=== PATIENT | female | born 1960 | race Caucasian/White ===

== ENCOUNTER → 2022-11-28 | Outpatient (CLI) | payer OTHER, SELFPAY ==
--- NOTE | 2022-11-28 | IMM_PTH ---
PATIENT: CHASTITY MADISON LOC: [facility] U#:[id number] AGE/SX: 62/F ROOM: RE11/28/[address]: Dr. Rm Patterson MD : 1960 BED: DIS: 11/28/2022 SPEC #: [id number] RECD: 11/29/22 12:41 STATUS: CRISTOBAL REQ #: [id number] RADHA: 11/28/22 00:[address]: Rm Patterson DEPT: IMMUNOHISTOCHEMISTRY RECD BY: Edith Marin ENTERED: 11/29/22 12:42 SP TYPE: IMMUNO OTHR DR: Dr. Maury Woo MD Tissues: Left breast, NOS Procedures: CALPONIN-1 (add) CK5-6 (add) CK8 (add) E-CAD (add) HER2 JENNIFER (add) KI-67 (add) P53 (add) TN (add) P40 (add) ER (initial) PHYSICIAN & [address] [address] SPECIMEN INFORMATION: Tissue Source: Left breast Clinical Info: Left breast mass Specimen Number: [id number] CPT code: 72636, 20534 x6, 90161 x3 METHODOLOGY: Deparaffinized sections of prefer/formalin-fixed tissue or PAP/DQ stained slides are incubated with monoclonal/polyclonal antibodies/oligonucleotide probes. Localization is made via biotin free immunoperoxidase method. Appropriate controls are performed and reacted as expected. Results on target cell population are indicated in the following table: RESULTS: ANTIBODY / CLONE RESULT E-Cad (ECH-6) positive CK8 (66pkduD65) positive Calponin-1 (SI508X) negative CK5-6 (D5 & 1684) negative P40 (BC28) negative P53 (DO-7) negative Ki-67 (30-9) positive, moderate ~40% MORPHOMETRIC ANALYSIS ER (clone 6F11) >95%, strong intensity TN (clone 16/1E2) 0 Her-2Neu (clone CB11) 1+, focal The prognostic test for HER2 is performed on formalin-fixed paraffin embedded tissue. A 3+ (positive) staining pattern is defined as intense, homogeneous, complete, circumferential membranous staining in >10% of contiguous tumor cells. A similar weak (2+) staining pattern is interpreted as equivocal. BRIAN follow-up testing is recommended for all equivocal cases. Positivity/negativity for ER/TN is reported if > or < 1% of the tumor cells are immuno- reactive, respectively. The ASCO/CAP criteria is used for scoring. Reference: Journal of Clinical Oncology, 2013; 31:0574-4808 & 2010; 16:5233-8056. Duration of fixation: 11.5 Hrs; Sample Adequate: Yes. These assays have not been validated on decalcified tissues. Results should be interpreted with caution given the likelihood of false negativity on decalcified specimens. These tests were developed and their performance characteristics determined by [facility]. They may not have been cleared or approved by the U.S. Food and Drug Administration. The FDA has determined that such clearance or approval is not necessary. The above immunohistochemical/dualISH markers are ordered and reviewed by the Pathologist. INTERPRETATION: Left breast, core biopsy: Invasive ductal carcinoma. Positive for estrogen receptors (favorable prognostic indicator). Negative for progesterone receptors (unfavorable prognostic indicator). Negative for overexpression of CMV5ixa. SJ:kunal 12/02/2022
--- NOTE | 2022-11-28 07:00 | BRBX_PTH ---
PATIENT: CHASTITY MADISON [facility] U#:[id number] AGE/SX: 62/F ROOM: RE11/28/[address]: Dr. Rm Patterson MD : 1960 BED: DIS: 11/28/2022 SPEC #: [id number] RECD: 11/28/22 07:35 STATUS: CRISTOBAL REWilfred #: [id number] RADHA: 11/28/22 07:[address]: Rm Patterson DEPT: SURGICAL PATHOLOGY RECD BY: Daisy Martins ENTERED: 11/28/22 10:02 SP TYPE: BREAST BX OTHR DR: Dr. Maury Woo MD Tissues: Left breast, NOS Procedures: Surgery Specimen Level IV HEADER OPERATION: Left breast mass biopsy PRE-OP DIAGNOSIS: Left breast mass TISSUE SUBMITTED: Left breast tissue MICROSCOPIC DIAGNOSIS Left breast tissue, core biopsy: Invasive ductal carcinoma, nuclear grade 2 (1.1 cm in greatest length). See comment. BONNIE:kunal 11/29/2022 COMMENT Immunohistochemistry ([id number]) supports the above diagnosis. The tumor also shows focal necrosis. ER/LA/Uje2kgz studies are being performed on sections of tumor and the results from this study will be reported separately ([id number]). MICROSCOPIC DESCRIPTION Slides are reviewed. GROSS DESCRIPTION Received in fixative is one container labeled with the patient's name and designated left breast tissue. The specimen consists of multiple elongated fragments of light banegas soft tissue that in aggregate measure 1.7 x 0.5 x 0.1 cm. The specimen is totally submitted in one cassette. / AM:kunal 11/28/2022 TC:0 CPT: 40898 ADDENDUM ADDENDUM ADDENDUM ADDENDUM ADDENDUM ADDENDUM 12/17/2022 08:50 ADDENDUM 12/19/2022 09:47 ADDENDUM 03/09/2025 16:16 ADDENDUM 12/17/2022 08:50 ADDENDUM 12/17/2022 08:50 ADDENDUM 12/17/2022 08:50 ADDENDUM 12/17/2022 08:50 PD-L1 (KEYBonaverdeUDA) IMMUNOHISTOCHEMICAL ANALYSIS FROM [facility] RESULTS: Tumor proportion score: <1% / Negative Please see complete report in e-chart or EMR [facility] ADVANCED SOLID TUMOR NGS REPORT FROM [facility] RESULT SUMMARY: Abnormal Immunotherapy Biomarkers: Tumor Mutation [place]: Low (3.1 Mutations / MB) Microsatellite Instability: MSI Negative (0.8%) PERTINENT NEGATIVE RESULTS: The following genes are NEGATIVE for clinically relevant mutations. Mutational hotspots and surrounding exonic regions were interrogated for DNA level point mutations and indels (fusions not assayed). AKT1, APC, ARID1A, SERINA, BRAF, BRCA1, BRCA2, CDH1, CDKN2A, CTNNB1, EGFR, EPCAM, ERBB2, ERBB4, FBXW7, FGFR1, FGFR2, FGFR3, GNA11, GNAQ, GNAS, HRAS, IDH1, IDH2, KDR, KIT, KRAS, MEN1, MET, MLH1, MSH2, MSH6, NOTCH1, NRAS, PDGFRA, PMS2, POLE, PTEN, PTPN11, RB1, RET, SMAD4, SMO, STK11, TERT, TSC1, TSC2, VHL Please see complete report in e-chart or EMR This addendum is added to incorporate an outside pathology consultation report. The case was examined at [facility] by Dr. Guerra (#[id number]) and the following diagnosis was rendered. HER2 IMMUNOHISTOCHEMISTRY ANALYSIS HER2 IHC SCORE: 0 SCORING METHOD: BREAST STAINING PATTERN: No membrane staining is observed or, faint partial staining of the membrane in 10% or less of the tumor cells. Please see complete above mentioned consultation report in EMR
== END | disposition home or self-care (01) ==
PROVIDERS: PCP Family Medicine; Referring Provider Surgery; Visit Provider Surgery
DX: C50.912 Malignant neoplasm of unspecified site of left female breast (principal)
CPT/HCPCS: 88305; 88341; 88342

== ENCOUNTER → 2022-12-06 | Outpatient (CLI) | payer OTHER, SELFPAY ==
--- NOTE | 2022-12-06 | FLU_PTH ---
PATIENT: CHASTITY MADISON LOC: U#:[id number] AGE/SX: 62/F ROOM: RE12/06/[address]: Dr. Gian Cassidy MD : 1960 BED: DIS: 12/06/2022 SPEC #: [id number] RECD: 12/06/22 11:41 STATUS: CRISTOBAL REQ #: [id number] RADHA: 12/06/22 00:[address]: Gian Cassidy DEPT: CYTOLOGY RECD BY: Sohail Agarwal ENTERED: 12/06/22 11:41 SP TYPE: Fluid OTHR DR: Dr. Maury Woo MD Tissues: THORACIC FLUID Procedures: Special Stain Group II Surgery Specimen Level IV Cytospin Fluid HEADER OPERATION: Thoracentesis right chest PRE-OP DIAGNOSIS: Pleural effusion TISSUE SUBMITTED: Thoracentesis fluid for cytology DIAGNOSIS CYTOLOGY Thoracentesis fluid for cytology (cytospin and cell block): Malignant cells present derived from metastatic adenocarcinoma, consistent with breast primary (ductal carcinoma). See comment. SJ:kunal 12/10/2022 COMMENT Immunohistochemistry ([id number]) supports the above diagnosis. Please make reference to previous specimen ([id number]) left breast tissue, core biopsy with diagnosis of ?invasive ductal carcinoma.? Case has been reviewed in consultation with Dr. Churchill who concurs with the above diagnosis. IDC:AM CYTOLOGY STUDY Slides are reviewed. CYTOLOGY GROSS Received is 100 ml of yellow cloudy fluid labeled with the patient's name and and designated per the requisition as thoracentesis. Submitted for cytology preparation including cell block. / kunal 12/06/2022 TC:0 CPT: 90582, 81000
--- NOTE | 2022-12-06 | IMM_PTH ---
PATIENT: CHASTITY MADISON LOC: U#:[id number] AGE/SX: 62/F ROOM: RE12/06/[address]: Dr. Gian Cassidy MD : 1960 BED: DIS: 12/06/2022 SPEC #: [id number] RECD: 12/09/22 14:13 STATUS: CRISTOBAL REQ #: [id number] RADHA: 12/06/22 00:[address]: Gian Cassidy DEPT: IMMUNOHISTOCHEMISTRY RECD BY: Edith Marin ENTERED: 12/09/22 14:17 SP TYPE: IMMUNO OTHR DR: Dr. Maury Woo MD Tissues: THORACIC FLUID Procedures: RCC (add) Mehran Ret (add) CK20 (add) CK5-6 (add) CK7 (add) CK8 (add) E-CAD (add) HEP PAR (add) HER2 JENNIFER (add) MACRO (add) MAMM (add) PA (add) TTF1 (add) Vimentin (add) Pankeratin (add) GATA3 (add) P40 (add) ER (initial) PHYSICIAN & INSTITUTION [place] [phone] SPECIMEN INFORMATION: Tissue Source: Thoracentesis fluid Clinical Info: Pleural effusion Specimen Number: [id number] CPT code: 08794, 77004 x17 METHODOLOGY: Deparaffinized sections of prefer/formalin-fixed tissue or PAP/DQ stained slides are incubated with monoclonal/polyclonal antibodies/oligonucleotide probes. Localization is made via biotin free immunoperoxidase method. Appropriate controls are performed and reacted as expected. Results on target cell population are indicated in the following table: RESULTS: ANTIBODY / CLONE RESULT ER (6F11) positive PA (1E2) negative Her-2neu (CB11) negative (0) E-Cad (ECH-6) positive Mammaglobin (31A5) negative GATA3 (L50-823) positive AE1-3 (AE1/AE3/PCK26) positive CK7 (OV-TL12/30) positive CK8 (90rijsM82) positive CK20 (KS20.8) negative Vimentin (V9) negative Macro (HAM-56) negative TTF-1 (8G7G3/1) negative HepPar (OCh1E5) negative RCC (PN-15) negative CALRET (polyclonal) negative CK5-6 (D5 & 1684) negative P40 (BC28) negative These tests were developed and their performance characteristics determined by [facility]. They may not have been cleared or approved by the U.S. Food and Drug Administration. The FDA has determined that such clearance or approval is not necessary. The above immunohistochemical/dualISH markers are ordered and reviewed by the Pathologist. INTERPRETATION: Thoracentesis fluid (cell block): Malignant cells present derived from metastatic adenocarcinoma, consistent with breast primary (ductal carcinoma). SJ:kunal 12/10/2022
--- NOTE | 2022-12-06 07:28 | US_ITS ---
PROCEDURE: ULTRASOUND GUIDED THORACENTESIS. DATE: 12/06/2022.. INDICATION: Female, 62 years old. Right pleural effusion. PHYSICIAN: Nathan Reynaga M.D. PROCEDURE: The risks, benefits, and alternatives to the procedure were explained to the patient. The specific risks of bleeding, infection, and pneumothorax requiring chest tube insertion were discussed and accepted. Written informed consent was obtained. Ultrasonographic evaluation of the right lower pleural space was carried out. An adequate pocket was identified. The patient was placed in the sitting, upright position. The overlying skin was prepped and draped in sterile fashion. 1% lidocaine was administered subcutaneously for local anesthesia. Under ultrasound guidance, a 5 Irish thoracentesis needle/catheter system was advanced into the right posterior lower pleural fluid collection. Approximately 1500 mL of sarbjit-colored fluid was drained. The catheter was removed, and a sterile dressing was applied. A specimen was collected and sent to the laboratory for analysis, as requested by the referring clinician. The patient tolerated the procedure well. A chest x-ray was ordered. US/Thoracentesis W US IMPRESSION: Ultrasound-guided right thoracentesis. Electronically Signed: Nathan Reynaga MD at 9:12 EST ,
[2022-12-06] MEDS: Lidocaine 2% (20 ml mdv) 20 ML Vial INFILT (08:18)
--- NOTE | 2022-12-06 08:28 | RAD_ITS ---
STUDY: X-RAY CHEST REASON FOR EXAM: Female, 62 years old. Post thora TECHNIQUE: AP inspiration and expiration views. COMPARISON: None. FINDINGS: The patient is status post right thoracentesis. There is no evidence of pneumothorax. Mild residual pleural-parenchymal changes at the right lung base. RAD/Chest Insp/Exp 2 View IMPRESSION: Post right thoracentesis. Mild degree of residual pleural parenchymal changes at the right lung base. Electronically Signed: Nathan Reynaga MD at 9:45 EST ,
[2022-12-06 08:40] VITALS: BP 137/95; BP 139/91; BP 143/91; PULSE 78; PULSE 84; PULSE 87; RESP 18; TEMP 36.6; O2SAT 96
== END | disposition home or self-care (01) ==
PROVIDERS: PCP Family Medicine; Referring Provider Internal Medicine Medical Oncology; Visit Provider Internal Medicine Medical Oncology
DX: J90 Pleural effusion, not elsewhere classified (principal)
CPT/HCPCS: 32555; 71046; 88108; 88305; 88313; 88341; 88342

== ENCOUNTER → 2022-12-13 | Outpatient (CLI) | payer OTHER, SELFPAY ==
--- NOTE | 2022-12-13 12:35 | ECHOLONC_ITS ---
Reason For Study: Breast CA, Pre Chemo Procedure This was a limited 2D transthoracic echocardiogram. Myocardial strain analysis was performed in this exam to aid in the assessment of cardiac function. Exam performed in department. Left Ventricle Normal LV size. Left ventricular systolic function is normal. The estimated ejection fraction is 60 %. No regional wall motion abnormalities noted. Right Ventricle Normal RV size. Normal systolic function. Atria Normal left atrium. Normal right atrium. Mitral Valve Normal mitral valve. Tricuspid Valve Normal tricuspid valve. Aortic Valve Normal aortic valve. Trisinus/trileaflet aortic valve. Pulmonic Valve Normal pulmonic valve. Great Vessels Normal aortic root. The pulmonary artery is normal size. Normal inferior vena cava. Pericardium/Pleural No pericardial effusion. MMode/2D Measurements & Calculations LVIDd: 4.8 cm IVSd: 0.84 cm Ao root diam: 3.5 cm LVIDs: 2.9 cm LVPWd: 0.90 cm FS: 39.9 % LVAd ap4: 24.1 cm2 SV(MOD-sp4): 39.0 ml SV(sp4-el): 40.3 ml LVLd ap4: 7.4 cm EDV(MOD-sp4): 66.0 ml EDV(sp4-el): 67.1 ml LVAs ap4: 13.4 cm2 LVLs ap4: 5.7 cm ESV(MOD-sp4): 27.0 ml ESV(sp4-el): 26.8 ml EF(MOD-sp4): 59.0 % EF(sp4-el): 60.0 % Doppler Measurements & Calculations Ao V2 max: 136.9 cm/sec TR max darlyn: 222.5 cm/sec Ao max P.5 mmHg TR max P.8 mmHg Ao V2 mean: 109.6 cm/sec Ao mean P.0 mmHg Ao V2 VTI: 27.5 cm ECHO/ONC Echo, Limited Study Interpretation Summary Normal LV size. Left ventricular systolic function is normal. The estimated ejection fraction is 60 %. The global longitudinal strain is borderline abnormal. The global longitudinal strain = -16.4% (abnormal). Ordering Physician: Gian Cassidy Referring Physician: Freddy Woo Performed By: Lotus Antoine, MICHAEL, RVT
== END | disposition home or self-care (01) ==
PROVIDERS: PCP Family Medicine; Referring Provider Internal Medicine Medical Oncology; Visit Provider Internal Medicine Medical Oncology
DX: Z01.818 Encounter for other preprocedural examination (principal); C50.412 Malignant neoplasm of upper-outer quadrant of left female breast
CPT/HCPCS: 93308; 93356

== ENCOUNTER → 2022-12-18 | Outpatient (CLI) | payer OTHER, SELFPAY ==
--- NOTE | 2022-12-18 08:34 | BD_ITS ---
STUDY: DUAL ENERGY X-RAY ABSORPTIOMETRY / DXA REASON FOR EXAM: Female, 62 years old. SCREENING TECHNIQUE: Bone Mineral Density (BMD) measurements of lumbar spine and bilateral hips were obtained. COMPARISON: None. FINDINGS: Lumbar Spine (L1-L4): g/cm2 (1.021) / T-score (-0.2) / Z-score (1.2) Findings are suggestive of normal bone density with a low fracture risk. Left Femur Total: g/cm2 (0.826) / T-score (-1.0) / Z-score (0.0) Left Femoral Neck: g/cm2 (0.660) / T-score (-1.7) / Z-score (-0.4) Right Femur Total: g/cm2 (0.848) / T-score (-0.8) / Z-score (0.2) Right Femoral Neck: g/cm2 (0.714) / T-score (-1.2) / Z-score (0.1) BD/Dexa Bone Density Study IMPRESSION: The patient is considered osteopenic as outlined below according to World Randy Organization (WHO) criteria with a moderate fracture risk. Reference Information: The T-score is the number of standard deviations above or below the standard which is normal for young adults at their peak bone mineral density. The World Health Organization (WHO) interprets the T-scores as follows: Above -1 Normal bone density Between -1 and -2.5 Osteopenia Equal to / or below -2.5 Osteoporosis As a practical clinical guideline, osteopenia may be graded as follows: Mild -1 through -1.5 Moderate -1.6 through -2.0 Severe -2.1 through -2.4 The Z-score is the number of standard deviations above or below age-matched controls. A Z-score of less than -1.5 would be considered abnormal. References: 1. NIH Osteoporosis and Related Bone Diseases www osteo.org 2. International Society for Clinical Densitometry www iscd.org 3. National Osteoporosis Foundation www nof.org Electronically Signed: Nathan Reynaga MD at 13:51 EST ,
--- NOTE | 2022-12-18 08:49 | NM_ITS ---
CLINICAL: 62-year-old female with history of primary breast carcinoma. WHOLE BODY 99m Tc MDP RADIONUCLIDE BONE SCINTIGRAPHY COMPARISON: FDG PET/CT study dated 12/11/2022 FINDINGS: Following the intravenous administration of 26.7 mCi of 99m Tc MDP, whole body bone images reveal: 1. Increased tracer concentration is defined in the 11th thoracic vertebra, the eighth-10th ribs posteriorly on the right. 2. Enhanced uptake is noted in the acromioclavicular compartments of both shoulders, the left sternoclavicular compartment, the bilateral wrists and hands, both elbow articulations, the knees bilaterally, the lower cervical spine posteriorly on the left, the region of the fourth thoracic vertebra posteriorly on the right, the fifth lumbar vertebra posteriorly on the right. 3. The remaining skeletal structures are scintigraphically unremarkable with normal-appearing renal images and urinary bladder activity identified. Facilitated uptake is noted in the greater trochanteric aspect of the left proximal femur most consistent with periostitis and/or trochanteric bursitis. Increased radiopharmaceutical is visualized in the right anterior chest wall which may be secondary to dystrophic calcification. NM/Bone Scan Whole Body IMPRESSION: 1. The increase in radiopharmaceutical concentration noted in the right posterior ribs and 11th thoracic vertebra is most consistent with osteoblastic turnover attributed to skeletal metastatic disease. 2. Degenerative arthritis is expressed in the bilateral shoulders, the right-left wrists and hands, the elbows bilaterally, the right-left knees, the cervical, thoracic and lumbar spine. Electronically Signed: Bossman Riley, at 22:33 EST ,
== END | disposition home or self-care (01) ==
PROVIDERS: PCP Family Medicine; Referring Provider Internal Medicine Medical Oncology; Visit Provider Internal Medicine Medical Oncology
DX: Z13.820 Encounter for screening for osteoporosis (principal); C50.412 Malignant neoplasm of upper-outer quadrant of left female breast; M85.80 Other specified disorders of bone density and structure, unspecified site; M81.0 Age-related osteoporosis without current pathological fracture
CPT/HCPCS: 77080; 78306; A9503

== ENCOUNTER → 2023-01-08 | Outpatient (CLI) | payer OTHER, SELFPAY ==
--- NOTE | 2023-01-08 10:12 | MRI_ITS ---
ACR Level 3 findings have been noted. An addendum which confirms receipt of the report will follow. INDICATION: STAGING METASTATIC BREAST CA EXAMINATION: MRI - MR Brain WO/W Contrast TECHNIQUE: Multiplanar and multisequence MR images of the brain were obtained without and with gadolinium. IV Contrast Dosage and Agent: None. COMPARISON: None. FINDINGS: BRAIN PARENCHYMA: At the cortical surface of the left occipital lobe there is a focus of contrast enhancement which is triangular in shape. This measures 0.32 cm transverse 0.54 cm AP on series 5 image 70. This is also seen on series 501 image 22. This is of concern for metastatic lesion. No MRI evidence of hemorrhage. No evidence of acute infarct. No intracranial mass or mass effect. There is preservation of the june/white matter interface. Normal sella turcica, pituitary gland, infundibular stalk, optic chiasm and hypothalamus. Posterior fossa structures are unremarkable. Mild inferior right mastoid air cell disease. INTERNAL AUDITORY CANALS: The internal auditory canals are well visualized and patent. No mass identified. CSF SPACES: Appropriate for age. No hydrocephalus. Basal cisterns are patent. VASCULAR SYSTEM: Normal flow voids in the major intracranial circulation. CALVARIUM, SKULL BASE, PARANASAL SINUSES AND MASTOID AIR CELLS: Clear. No expansile changes. ORBITS: Both globes, extraocular muscles, optic nerves and retrobulbar fat appear unremarkable. MRI/Brain W/WO Contrast IMPRESSION: 0.32 cm transverse by 0.54 cm AP dimension enhancing focus june-white junction of the left occipital lobe. This is of concern for metastatic lesion. Mild inferior right mastoid air cell disease. Level 3 nonstandard communication initiated. Electronically Signed: Jonnathan Reese MD, MARTIN at 14:55 EST ,
--- NOTE | 2023-01-08 10:12 | MRI_ITS ---
STUDY: MRI THORACIC SPINE WITH AND WITHOUT CONTRAST REASON FOR EXAM: Female, 62 years old. STAGING METASTATIC BREAST CA TECHNIQUE: IV 15ml Dotarem was administered for the contrast portion of the examination. COMPARISON: Whole body bone scan to 12/06/2022. Whole body PET/CT fusion scan 12/11/2022. FINDINGS: Normal kyphosis of the thoracic spine. There is no substantial scoliosis. T1-2, T2-3, T3-4, T4-5, T5-6, T6-7, T7-8, T8-9, T9-10, T10-11, T11-12: Large area of abnormal T1 hypointensity in the right side of the T11 vertebral body enhanced with IV contrast. Smaller abnormal right T1 hypointense lesion in the right upper posterior T10 vertebral body extending to the right T10 pedicle also enhance with IV contrast. Small enhancing benign vertebral body hemangioma in the posterior superior corner of T3 vertebral body is not metastatic disease.No thoracic extruded disc fragment or spinal stenosis. Normal visualized thoracic cord. Normal conus medullaris that terminates at the T12-L1 disc space level. The soft tissue structures are unremarkable. No abnormal enhancing lesions intradurally and extradurally. The bone metastases did enhance with intravenous contrast at T10 and T11. MRI/Spine Thoracic W/WO Contrast IMPRESSION: 1. Enhancing bone metastases involving T10 and T11 vertebral bodies and the right T10 pedicle. 2. Small T3 benign vertebral body hemangioma. 3. No MRI evidence of intramural enhancing metastatic mass or extra dural enhancing metastatic mass. 4. Normal thoracic spinal cord with and without contrast. 5. No MRI evidence of thoracic extruded disc fragment or spinal stenosis. 6. Large volume malignant effusion in the right pleural space. Electronically Signed: Keegan Olguin MD at 14:01 EST ,
[2023-01-08 10:45] LABS: CREATININE FINGERSTICK < 0.9 mg/dL (0.55-1.02); EGFR FINGERSTICK > 60.0000 mL/min (>60)
== END | disposition home or self-care (01) ==
LOC: MRI 10:12
PROVIDERS: PCP Family Medicine; Referring Provider Internal Medicine Medical Oncology; Visit Provider Internal Medicine Medical Oncology
DX: C50.412 Malignant neoplasm of upper-outer quadrant of left female breast (principal); C79.51 Secondary malignant neoplasm of bone
CPT/HCPCS: 70553; 72157; A9575

== ENCOUNTER → 2023-02-28 | Outpatient (CLI) | payer OTHER, SELFPAY ==
--- NOTE | 2023-02-28 16:12 | MRI_ITS ---
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 IV Contrast Dosage and Agent: 17 mL clariscan COMPARISON: 01/08/2023 FINDINGS: BRAIN PARENCHYMA: 4 mm focus of cortical enhancement in the right superior frontal gyrus, unchanged. Unchanged focal enhancement in the posterolateral left occipital cortex. Decreased conspicuity of left occipital pole focal triangular-shaped cortical enhancement. No MRI evidence of hemorrhage. No evidence of acute infarct. No intracranial mass or mass effect. There is preservation of the june/white matter interface. Normal sella turcica, pituitary gland, infundibular stalk, optic chiasm and hypothalamus. Posterior fossa structures are unremarkable. CSF SPACES: Appropriate for age. No hydrocephalus. Basal cisterns are patent. VASCULAR SYSTEM: Normal flow voids in the major intracranial circulation. CALVARIUM, SKULL BASE, PARANASAL SINUSES AND MASTOID AIR CELLS: Clear. No expansile changes. ORBITS: Both globes, extraocular muscles, optic nerves and retrobulbar fat appear unremarkable. MRI/Brain W/WO Contrast IMPRESSION: Unchanged focal enhancement in the right superior frontal gyrus, suspicious for metastasis. Unchanged focal enhancement in the posterior lateral left occipital cortex, suspicious for metastasis. Decreased conspicuity of focal triangular enhancement in the left occipital pole. Electronically Signed: Reji Fernandez MD at 21:15 EDT ,
[2023-02-28 16:37] LABS: Absolute Lymphocyte Count 0.88 X10^3/uL (0.83-4.51); Absolute Neutrophil Count 1.3 X10^3/uL (2.0-7.7); Basophil# 0.05 X10^3/uL; Eosinophil# 0.04 X10^3/uL; Eosinophils% 1.6 % (0-5); Hematocrit 37.9 % (37-47); Hemoglobin 12.9 g/dL (12.0-15.0); Lymphocyte # 0.88 X10^3/ul (0.83-4.51); Lymphocyte % 35.9 % (19-41); Mean Corpuscular Hgb 31.2 pg (27.0-32.0); Mean Corpuscular Volume 91.5 fL (81-99); Monocyte# 0.22 X10^3/uL; NRBC Flagged by Analyzer 0 % (0-5); Neutrophil # 1.25 X10^3/uL (2.7-7.7); Neutrophil % 51.1 % (47-70); Platelet Count 174 K/mm3 (150-450); RBC Distribution Width CV 15.5 % (11.6-14.6); RBC Distribution Width SD 51.1 fl (35.1-43.9); Red Blood Count 4.14 M/mm3 (4.2-5.4); White Blood Count 2.5 K/mm3 (4.4-11.0)
[2023-02-28 17:25] LABS: AST(SGOT) 11 U/L (15-37); Alanine Aminotransfer ALT/SGPT 18 U/L (13-56); Albumin, Serum 3.7 g/dL (3.2-5.0); Alkaline Phosphatase 46 U/L (45-117); Anion Gap 3 (5-15); BUN 15 mg/dL (7-18); BUN/Creat Ratio 23.5 RATIO (10-20); Calcium,Total 9.2 mg/dL (8.5-10.1); Chloride 106 mmol/L (98-107); Creatinine, Serum 0.64 mg/dL (0.55-1.02); EST Glomerular Filtration Rate 101 mL/min (>60); Est Glom Filt Rate - Afr Amer 122 mL/min (>60); Globulin 3.6 g/dL (2.2-4.2); Glucose 103 mg/dL (74-106); LDH 159 U/L (84-246); Potassium 3.3 mmol/L (3.5-5.1); Protein, Total 7.3 g/dL (6.4-8.2); Sodium Level 139 mmol/L (136-145)
[2023-03-02 12:16] LABS: CA 15-3 68.3 U/mL (0.0-25.0); CA 27.29 90.6 U/mL (0.0-38.6); Carcinoembryonic Antigen 1.9 ng/mL (0.0-4.7)
== END | disposition home or self-care (01) ==
LOC: MRI 15:37
PROVIDERS: PCP Family Medicine; Referring Provider Internal Medicine Medical Oncology; Visit Provider Internal Medicine Medical Oncology
DX: C50.412 Malignant neoplasm of upper-outer quadrant of left female breast (principal); C79.31 Secondary malignant neoplasm of brain; C78.00 Secondary malignant neoplasm of unspecified lung; C79.51 Secondary malignant neoplasm of bone
CPT/HCPCS: 36415; 70553; 80053; 82378; 83615; 85025; 86300; 86304; A9575

== ENCOUNTER → 2023-03-31 | Outpatient (CLI) | payer OTHER, SELFPAY ==
--- NOTE | 2023-03-31 07:24 | CT_ITS ---
EXAM: CT CHEST, ABDOMEN AND PELVIS WITH INTRAVENOUS CONTRAST CLINICAL INDICATION: MONITOR METASTATIC BREAST CA-IV ONLY TECHNIQUE: Helically acquired images were obtained of the chest, abdomen and pelvis with intravenous contrast. This CT exam was performed using one or more of the following dose reduction techniques: automated exposure control, adjustment of the mA and/or kV according to patient size, and/or use of iterative reconstruction technique. CONTRAST: IV 100mL Isovue-300 COMPARISON: PET CT scan 12/11/2022 FINDINGS: CHEST: LUNGS AND PLEURAL SPACES: Persistent moderate-sized right pleural effusion. Parietal pleural thickening along the posterior portion of the right hemithorax again seen which may represent pleural-based metastasis. No significant change in the bilateral pulmonary nodules. No pneumothorax. HEART: Normal. Heart size is normal. No pericardial effusion. MEDIASTINUM: Normal. No mediastinal or hilar adenopathy. Esophagus is unremarkable. No hiatal hernia. THYROID: Normal. No thyroid nodules or calcification. ABDOMEN: LIVER: Normal. Homogeneous. No focal mass. PANCREAS: Normal. No focal cystic or solid mass. SPLEEN: Normal. Normal size without focal cystic or solid mass. ADRENALS: Normal. No nodules. KIDNEYS AND URETERS: Normal. Normal renal size and position. No hydronephrosis. STOMACH AND BOWEL: Normal. No bowel obstruction or ileus. No focal inflammatory change. PELVIS: APPENDIX: Appendix is visualized and normal in appearance. BLADDER: Normal. REPRODUCTIVE: Unremarkable as visualized. No mass. CHEST, ABDOMEN and PELVIS: INTRAPERITONEAL SPACE: Normal. No ascites or other fluid collection. No free air. BONES/JOINTS: Previously noted radiolucent defect involving the right side of the T11 vertebral body is now sclerotic in appearance. Mild anterior listhesis of L4 on L5 likely related to associated facet arthropathy and disc space narrowing. SOFT TISSUES: Persistent 1.9 cm left breast nodule with associated nipple retraction. No discrete abdominal or pelvic wall hernia. VASCULATURE: Normal. Aorta is non-dilated. No aortic dissection. No obvious central pulmonary embolism although this study was not performed with the pulmonary embolism protocol. LYMPH NODES: Normal. No enlarged lymph nodes. CT/CT Chest, Abd, Pel w/Contrast IMPRESSION: 1. Persistent moderate size right pleural effusion associated with posterior parietal pleural thickening. 2. Stable bilateral pulmonary nodules. 3. Sclerotic transformation of the T11 vertebral body metastasis. 4. Persistent 19 mm left breast nodule with associated retraction of the left nipple. Electronically Signed: Cl Willis MD at 8:38 EDT ,
[2023-03-31 08:08] LABS: Absolute Neutrophil Count 1.2 X10^3/uL (2.0-7.7); Basophil# 0.05 X10^3/uL; Basophil% 1.9 % (0-1); Eosinophil# 0.07 X10^3/uL; Eosinophils% 2.6 % (0-5); Hematocrit 38.4 % (37-47); Hemoglobin 12.8 g/dL (12.0-15.0); Lymphocyte % 37.6 % (19-41); Mean Corp Hgb Conc 33.3 g/dL (32-36); Mean Corpuscular Hgb 31.7 pg (27.0-32.0); Mean Platelet Vol. 9.4 fl (6.2-12.0); Monocyte# 0.34 X10^3/uL; Monocyte% 12.8 % (0-10); NRBC Flagged by Analyzer 0 % (0-5); Neutrophil # 1.19 X10^3/uL (2.7-7.7); Neutrophil % 44.7 % (47-70); Platelet Count 164 K/mm3 (150-450); RBC Distribution Width CV 15.1 % (11.6-14.6); RBC Distribution Width SD 52.6 fl (35.1-43.9); Red Blood Count 4.04 M/mm3 (4.2-5.4); White Blood Count 2.7 K/mm3 (4.4-11.0)
[2023-03-31 08:30] LABS: ALB/GLOB Ratio 0.9 RATIO (0.9-2.4); AST(SGOT) 14 U/L (15-37); Alanine Aminotransfer ALT/SGPT 16 U/L (13-56); Albumin, Serum 3.6 g/dL (3.2-5.0); Alkaline Phosphatase 45 U/L (45-117); Anion Gap 7 (5-15); BUN 22 mg/dL (7-18); BUN/Creat Ratio 32.8 RATIO (10-20); Calcium,Total 8.9 mg/dL (8.5-10.1); Chloride 103 mmol/L (98-107); Creatinine, Serum 0.67 mg/dL (0.55-1.02); EST Glomerular Filtration Rate 95 mL/min (>60); Est Glom Filt Rate - Afr Amer 115 mL/min (>60); Glucose 107 mg/dL (74-106); LDH 140 U/L (84-246); Protein, Total 7.6 g/dL (6.4-8.2); Sodium Level 139 mmol/L (136-145)
[2023-04-01 06:09] LABS: CA 15-3 80.4 U/mL (0.0-25.0); CA 27.29 92.3 U/mL (0.0-38.6); Cancer Antigen 125 43.8 U/mL (0.0-38.1)
== END | disposition home or self-care (01) ==
LOC: CT 07:03
PROVIDERS: PCP Family Medicine; Referring Provider Internal Medicine Medical Oncology; Visit Provider Internal Medicine Medical Oncology
DX: C50.411 Malignant neoplasm of upper-outer quadrant of right female breast (principal); C78.01 Secondary malignant neoplasm of right lung; C79.51 Secondary malignant neoplasm of bone
CPT/HCPCS: 36415; 71260; 74177; 80053; 83615; 85025; 86300; 86304; Q9967

== ENCOUNTER → 2023-05-26 | Outpatient (CLI) | payer OTHER, SELFPAY ==
--- NOTE | 2023-05-26 10:29 | MRI_ITS ---
EXAM: MR HEAD WITHOUT AND WITH INTRAVENOUS CONTRAST CLINICAL INDICATION: Follow-up brain metastases. TECHNIQUE: Multiplanar and multisequence MR images of the brain were obtained without and with intravenous contrast. CONTRAST: 17 mL of IV Clariscan. COMPARISON: MRI brain with and without contrast 02/28/2023. FINDINGS: BRAIN AND EXTRA-AXIAL SPACES: The enhancing brain metastatic mass in the right superior frontal gyrus has resolved. The tiny suspicious enhancing metastatic mass in the left lateral occipitotemporal gyrus has resolved. The possible tiny enhancing metastatic mass in the surface of the right medial occipital lobe cortex (series 12, image 51) is much smaller. It measures 1 mm, previously 3 mm. Nor enhancing lesions. No intra- or extra-axial hemorrhage. No evidence of acute infarct. There is preservation of the june/white matter interface. Posterior fossa structures are unremarkable. Ventricles are appropriate for age. No hydrocephalus. Basal cisterns are patent. No focal signal abnormalities throughout the brain parenchyma in the T2 FLAIR sequence. SELLA: Unremarkable. Normal sella turcica, pituitary gland, infundibular stalk, optic chiasm and hypothalamus. AUDITORY SYSTEM: Unremarkable. The internal auditory canals are patent. BONES/JOINTS: Unremarkable. No discrete lytic or blastic abnormalities. SINUSES: Unremarkable as visualized. Clear. MASTOID AIR CELLS: Unremarkable as visualized. Clear. ORBITS: Unremarkable as visualized. Both globes, extraocular muscles, optic nerves and retrobulbar fat appear unremarkable. VASCULATURE: Unremarkable as visualized. Normal flow voids in the major intracranial circulation. MRI/Brain W/WO Contrast IMPRESSION: 1. Limited study due to motion. 2. Interval resolution of the enhancing metastatic mass in the right superior frontal gyrus. 3. Interval resolution of the tiny suspicious enhancing metastatic mass in the left lateral occipitotemporal gyrus. 4. Interval decrease in suspicious metastatic mass in the medial right occipital lobe (series 12, image 51). This measures 1 mm, previously 3 mm. Electronically Signed: Keegan Olguin MD at 15:07 EDT ,
== END | disposition home or self-care (01) ==
LOC: MRI 10:03
PROVIDERS: PCP Family Medicine; Referring Provider Internal Medicine Medical Oncology; Visit Provider Internal Medicine Medical Oncology
DX: C50.919 Malignant neoplasm of unspecified site of unspecified female breast (principal); C78.00 Secondary malignant neoplasm of unspecified lung; C79.31 Secondary malignant neoplasm of brain; C79.51 Secondary malignant neoplasm of bone
CPT/HCPCS: 70553; A9575

== ENCOUNTER → 2023-07-22 | Outpatient (CLI) | payer OTHER, SELFPAY ==
--- NOTE | 2023-07-22 14:48 | CT_ITS ---
STUDY: CT CHEST, ABDOMEN T PELVIS WITH CONTRAST REASON FOR EXAM: Female, 63 years old. Breast cancer; assess response to treatment RADIATION DOSAGE (If Supplied By Facility): CTDIvol = ( 16.33 ) mGy, DLP = ( 1688.49 ) mGycm TECHNIQUE: Transaxial imaging was performed following intravenous administration of IV 100mL Isovue-300. Multiplanar coronal and sagittal images were reformatted. Individualized dose optimization techniques were used for this CT. COMPARISON: Comparison is made with prior study dated March 31, 2023. FINDINGS: CHEST Stable 1.9 cm left breast nodule with the retraction. Small right pleural effusion with basilar atelectasis. This has improved as compared to prior study. Interval decrease in size of a small nodule in the posterior aspect of the right upper lobe. It presently measures 6.1 mm. This is seen on axial image #26. Stable 4.8 mm spiculated nodule in the midportion of the right upper lobe as seen on axial image #31. Stable 3.4 mm noncalcified nodule in the peripheral lateral aspect of the right upper lobe as seen on axial image #53. Stable focal nodular thickening of the anterior aspect of the right minor fissure. The previously seen atelectasis in the right middle lobe as almost completely resolved. There is a 1.1 cm x 0.8 cm nodule in the anterior aspect of the right lower lobe as seen on axial image #90. This has decreased in size as compared to prior study. There is no demonstrated pleural abnormality. Normal heart and pericardium. Normal mediastinum. Normal hilar regions. Normal unenhanced pulmonary arteries. Normal aorta arch and descending thoracic aorta. There are multi-level degenerative changes of the thoracic spine. ABDOMEN There is decreased attenuation of the liver consistent with steatosis. Normal gallbladder and extrahepatic biliary system. Normal spleen. Normal pancreas. Normal bilateral adrenal glands. Normal right kidney. Normal left kidney. Normal visualized stomach. Normal small intestine. Normal colon. The appendix is visualized and appears normal. There is scattered atherosclerotic calcification of the abdominal aorta, without a demonstrated aneurysm. Normal inferior vena cava. Normal retroperitoneum. There is a small umbilical hernia containing fat. PELVIS Normal urinary bladder. There is no pelvic fluid. There is no pelvic lymphadenopathy or mass lesion. Normal visualized pelvic arteries. CT/CT Chest, Abd, Pel w/Contrast IMPRESSION: Essentially stable examination except for slight decrease in size of the previously seen nodular density in the anterior aspect of the right lower lobe. Electronically Signed: Nathan Reynaga MD at 15:44 EDT ,
== END | disposition home or self-care (01) ==
PROVIDERS: PCP Family Medicine; Referring Provider Nurse Practitioner Family; Visit Provider Nurse Practitioner Family
DX: C50.912 Malignant neoplasm of unspecified site of left female breast (principal); C79.51 Secondary malignant neoplasm of bone; C78.00 Secondary malignant neoplasm of unspecified lung; G89.3 Neoplasm related pain (acute) (chronic); J90 Pleural effusion, not elsewhere classified
CPT/HCPCS: 71260; 74177; Q9967

== ENCOUNTER → 2023-07-25 | Outpatient (CLI) | payer OTHER, SELFPAY ==
--- NOTE | 2023-07-25 07:34 | NM_ITS ---
CLINICAL: 63-year-old female with history of primary breast carcinoma. WHOLE BODY 99m Tc MDP RADIONUCLIDE BONE SCINTIGRAPHY COMPARISON: Previous whole body bone scintigraphy study dated 12/18/2022 FINDINGS: Following the intravenous administration of 26.7 mCi of 99m Tc MDP, whole body bone images reveal: 1. On the current examination, there is increased uptake noted in the acromioclavicular compartments of both shoulders, the bilateral wrists, the knee articulations bilaterally, the lower cervical spine posteriorly on the left, the ninth 11th thoracic vertebra posteriorly on the right, the fifth lumbar vertebra posteriorly on the right. 2. The prior defined increased uptake focally apparent in the right posterior rib and visualized thoracic spine are not apparent on the current examination. 3. The remaining skeletal structures are scintigraphically unremarkable with normal-appearing renal images and urinary bladder activity identified. NM/Bone Scan Whole Body IMPRESSION: 1. The increase in tracer uptake noted in the bilateral shoulders, right and left wrists, both knees, the lower cervical spine, the thoracic and lumbar spine is commensurate with degenerative arthritis. Plain film radiography may be of benefit in the region of the lower thoracic spine. 2. The previously defined ninth and 12th thoracic vertebra and right posterior 11th rib abnormalities are not visualized on the current examination. Overall compared to the previous whole body bone scintigraphy study dated 12/18/2022, there is current scintigraphic absence of defined viable neoplastic disease. Electronically Signed: Bossman Riley DO at 22:34 EDT ,
== END | disposition home or self-care (01) ==
LOC: NM 07:34
PROVIDERS: PCP Family Medicine; Referring Provider Nurse Practitioner Family; Visit Provider Nurse Practitioner Family
DX: C50.912 Malignant neoplasm of unspecified site of left female breast (principal); C79.51 Secondary malignant neoplasm of bone
CPT/HCPCS: 78306; A9503

== ENCOUNTER → 2023-10-10 | Outpatient (CLI) | payer OTHER, SELFPAY ==
--- NOTE | 2023-10-10 12:36 | MRI_ITS ---
HISTORY: assess disease status; metastatic breast cancer -- checking with provider on Rx for pre-med. TECHNIQUE: Multiplanar and multisequence MR images of the brain were obtained before and after the intravenous administration of 19 mL [place] scan. 648 images. COMPARISON: 05/26/2023, 02/28/2023, 01/08/2023. FINDINGS: BRAIN PARENCHYMA: 3 mm enhancing left occipital lobe lesion on image 66 of series 11, not present on 05/26/2023 but smaller compared to 01/08/2023. 2 mm nodular enhancing lesion of the left occipital cortex on image 46 of series 11, slightly increased from most recent prior but decreased compared to more remote priors. No abnormal focus of restricted diffusion. No acute intracranial hemorrhage identified. CSF SPACES: Cerebral ventricles, cortical sulci, and other extra-axial CSF spaces within normal limits in size for age. No significant midline shift or other mass effect.No extra-axial fluid collection. VASCULAR SYSTEM: Major intracranial flow voids are maintained. PARANASAL SINUSES AND MASTOID AIR CELLS: No significant air fluid levels. ORBITS: Symmetric contents. MRI/Brain W/WO Contrast IMPRESSION: 3 mm recurrent enhancing metastatic lesion in the left occipital lobe, absent on 05/26/2023 but mildly decreased compared to 02/28/2023 and 01/08/2023. 2 mm enhancing metastatic lesions in the left occipital lobe, slightly increased compared to 05/26/2023 but mildly decreased compared to 02/28/2023 and 01/08/2023. Electronically Signed: Radha Chung MD at 14:54 EST ,
[2023-10-10 13:15] LABS: CREATININE FINGERSTICK 0.9 mg/dL (0.55-1.02); EGFR FINGERSTICK > 60.0000 mL/min (>60)
== END | disposition home or self-care (01) ==
PROVIDERS: PCP Family Medicine; Referring Provider Internal Medicine Medical Oncology; Visit Provider Internal Medicine Medical Oncology
DX: C50.912 Malignant neoplasm of unspecified site of left female breast (principal); C79.31 Secondary malignant neoplasm of brain; C78.00 Secondary malignant neoplasm of unspecified lung; C79.51 Secondary malignant neoplasm of bone
CPT/HCPCS: 70553; A9575

== ENCOUNTER → 2024-03-08 | Outpatient (CLI) | payer OTHER, SELFPAY ==
--- NOTE | 2024-03-08 08:00 | CT_ITS ---
STUDY: CT CHEST, ABDOMEN T PELVIS WITH CONTRAST REASON FOR EXAM: Female, 63 years old. ASSESS TREATMENT-MET BREAST CA-IV ONLY RADIATION DOSAGE (If Supplied By Facility): CTDIvol = ( 18.32 ) mGy, DLP = ( 1715.48 ) mGycm TECHNIQUE: Transaxial imaging was performed following intravenous administration of IV 100mL Isovue-300. Multiplanar coronal and sagittal images were reformatted. Individualized dose optimization techniques were used for this CT. COMPARISON: Comparison is made with prior study dated July 22, 2023. FINDINGS: CHEST Stable 1.9 cm retroareolar breast nodule on the left side with evidence of a biopsy clip. Mild heterogeneous enlargement of the left lobe of the thyroid. Stable small benign-appearing bilateral axillary lymph nodes. Small residual right pleural effusion. Stable 6.1 mm spiculated nodule in the right lung apex. Stable 6 mm nodule in the posterior medial aspect of the right lung apex. There is a new 2.8 mm nodule in the lateral aspect of the right upper lobe as seen on axial image #35 and coronal image #159. Interval decrease in size of the previously seen nodule in the superior aspect of the right lower lobe abutting the right major fissure. It presently measures 7 mm. Stable small pleural-based nodules in the right lower lobe. Interval decrease in size of the right pleural effusion. Interval decrease in size of the right lower lobe nodule adjacent to the right major fissure as seen on axial image #83. There are calcifications of the coronary arteries. Normal mediastinum. Normal hilar regions. Normal unenhanced pulmonary arteries. Normal aorta arch and descending thoracic aorta. Sclerotic lesion in the T11 vertebrae. This is unchanged. ABDOMEN There is decreased attenuation of the liver consistent with steatosis. Normal gallbladder and extrahepatic biliary system. Normal spleen. Normal pancreas. Normal bilateral adrenal glands. Normal right kidney. Normal left kidney. Normal visualized stomach. Normal small intestine. Moderate amount of fecal material is seen in the colon. The appendix is visualized and appears normal. There is scattered atherosclerotic calcification of the abdominal aorta, without a demonstrated aneurysm. Normal inferior vena cava. Normal retroperitoneum. Normal abdominal wall. There are minimal anterior listhesis of L4 on L5 most likely secondary to the facet joint osteoarthritis. Degenerative changes of the visualized lumbar spine. Sclerotic lesion in the T11 vertebrae. PELVIS Normal urinary bladder. There is no pelvic fluid. There is no pelvic lymphadenopathy or mass lesion. Normal visualized pelvic arteries. CT/CT Chest, Abd, Pel w/Contrast IMPRESSION: Interval improvement in the right pleural effusion with the decreased size of the previously seen pulmonary nodules. Diffuse fatty infiltration of the liver. Stable sclerotic nodule in the T11 vertebrae. Electronically Signed: Nathan Reynaga MD at 14:52 EDT ,
== END | disposition home or self-care (01) ==
LOC: CT 07:59
PROVIDERS: PCP Family Medicine; Referring Provider Internal Medicine Medical Oncology; Visit Provider Internal Medicine Medical Oncology
DX: C50.412 Malignant neoplasm of upper-outer quadrant of left female breast (principal); C78.00 Secondary malignant neoplasm of unspecified lung
CPT/HCPCS: 71260; 74177; Q9967

== ENCOUNTER → 2024-04-21 | Outpatient (CLI) | payer OTHER, SELFPAY ==
--- NOTE | 2024-04-21 07:34 | NM_ITS ---
CLINICAL: 63-year-old female with history of primary breast carcinoma. WHOLE BODY 99m Tc MDP RADIONUCLIDE BONE SCINTIGRAPHY COMPARISON: Previous whole body bone scintigraphy study dated 07/25/2023 FINDINGS: Following the intravenous administration of 27.8 mCi of 99m Tc MDP, whole body bone images reveal: 1. Increased tracer concentration is demonstrated in the acromioclavicular compartments of both shoulders, the bilateral wrists and hands, the anterolateral femoral and anteromedial tibial compartments of both knees, the ankle articulations bilaterally, the lower cervical spine posteriorly on the left, first thoracic vertebra posteriorly on the left, the fourth lumbar vertebra posteriorly on the left, the first sacral segment posteriorly on the right, the bilateral forefoot. 2. The remaining skeletal structures are scintigraphically unremarkable with normal-appearing renal images and urinary bladder activity identified. NM/Bone Scan Whole Body IMPRESSION: 1. The increase in radiopharmaceutical concentration defined in the bilateral shoulders, wrists and hands, the knees and ankle articulations bilaterally, the cervical, thoracic and lumbar spine, the sacrum and bilateral forefoot is commensurate with degenerative arthritis. 2. Overall compared to the previous whole body bone scintigraphy study dated 07/25/2023, there is minimal interval change. There is no definitive scintigraphic evidence of osseous metastatic disease on the current examination. Electronically Signed: Bossman Riley DO at 11:11 EDT ,
== END | disposition home or self-care (01) ==
LOC: NM 07:34
PROVIDERS: PCP Family Medicine; Referring Provider Internal Medicine Medical Oncology; Visit Provider Internal Medicine Medical Oncology
DX: C50.112 Malignant neoplasm of central portion of left female breast (principal); C79.51 Secondary malignant neoplasm of bone; Z17.0 Estrogen receptor positive status [ER+]; M89.8X9 Other specified disorders of bone, unspecified site
CPT/HCPCS: 78306; A9503

== ENCOUNTER → 2024-09-17 | Outpatient (CLI) | payer OTHER, SELFPAY ==
--- NOTE | 2024-09-17 12:31 | MRI_ITS ---
STUDY: MRI BRAIN WITH AND WITHOUT CONTRAST REASON FOR EXAM: Female, 64 years old. brain lesion left occipital lobe; met breast ca, COMPARE TO PREVIOUS, BEST POSSIBLE PATIENT UNABLE TO HOLD STILL, REPEATED TECHNIQUE: Standardized multiplanar fat and water weighted pulse sequences were obtained. IV CLARISCAN 18ML was administered for the contrast portion of the examination. COMPARISON: October 10, 2023 FINDINGS: Normal size of the ventricles and extra-axial spaces for the patient''s age. There is a slightly heterogeneously enhancing nodule in the left parietal occipital region measuring approximately 1.03 x 1.12 x 1.3 cm with vasogenic edema consistent with known metastatic disease but has increased in size since prior exam. There is a second larger multinodular mass in the right occipital lobe measuring approximately 2.3 x 1.85 x 2.15 cm with associated vasogenic edema consistent with metastatic disease. There is effacement of the cortical sulci but no significant mass effect upon the ventricular system Normal bilateral basal ganglia. Normal thalami. There is no extra-axial fluid accumulation. Normal flow voids within the major intracranial circulation suggesting patency by spin echo criteria. Normal venous enhancement. Partial empty sella deformity of uncertain clinical significance. Normal, infundibular stalk, optic chiasm and hypothalamus. Normal tectal plate and pineal gland. Normal midbrain, vahid and medulla. Normal cerebellum. Normal basal cisterns. Normal bilateral temporal bones. Normal bilateral internal auditory canals. No demonstrated orbital abnormality, within the constraints of a routine brain study. Normal visualized paranasal sinuses. Normal calvarium and skull base. Normal visualized soft tissue structures. Normal visualized upper cervical spine. MRI/Brain W/WO Contrast IMPRESSION: Increased size of previously identified left parietal occipital metastatic focus with new lesion in the right occipital lobe Electronically Signed: Walter Can MD at 16:32 EDT ,
[2024-09-17 12:41] LABS: Absolute Lymphocyte Count 0.94 X10^3/uL (0.83-4.51); Absolute Neutrophil Count 1.4 X10^3/uL (2.0-7.7); Basophil# 0.04 X10^3/uL; Basophil% 1.5 % (0-1); Eosinophil# 0.03 X10^3/uL; Eosinophils% 1.1 % (0-5); Hemoglobin 12.5 g/dL (12.0-15.0); Lymphocyte # 0.94 X10^3/ul (0.83-4.51); Lymphocyte % 35.3 % (19-41); Mean Corp Hgb Conc 34.7 g/dL (32-36); Mean Corpuscular Hgb 33.3 pg (27.0-32.0); Mean Platelet Vol. 9.2 fl (6.2-12.0); Monocyte# 0.22 X10^3/uL; Monocyte% 8.3 % (0-10); NRBC Flagged by Analyzer 0 % (0-5); Neutrophil # 1.42 X10^3/uL (2.7-7.7); Neutrophil % 53.4 % (47-70); POSITIVE MORPHOLOGY YES; Platelet Count 161 K/mm3 (150-450); RBC Distribution Width CV 12.6 % (11.6-14.6); RBC Distribution Width SD 43.8 fl (35.1-43.9); Red Blood Count 3.75 M/mm3 (4.2-5.4); White Blood Count 2.7 K/mm3 (4.4-11.0)
[2024-09-17 12:43] LABS: Differential Indicated SCAN CRITERIA MET
[2024-09-17 13:08] LABS: Differential Comment SCANNED; Platelet Estimate ADEQUATE (ADEQ); Red Cell Morphology NORM C+C NORMAL (NORM C&C)
[2024-09-17 13:10] LABS: ALB/GLOB Ratio 1.1 RATIO (0.9-2.4); AST(SGOT) 14 U/L (15-37); Alanine Aminotransfer ALT/SGPT 23 U/L (13-56); Albumin, Serum 3.9 g/dL (3.2-5.0); Alkaline Phosphatase 56 U/L (45-117); Anion Gap 4 (5-15); BUN 19 mg/dL (7-18); BUN/Creat Ratio 25.3 RATIO (10-20); Calcium,Total 9.2 mg/dL (8.5-10.1); Chloride 105 mmol/L (98-107); Creatinine, Serum 0.75 mg/dL (0.55-1.02); EST Glomerular Filtration Rate 83 mL/min (>60); Est Glom Filt Rate - Afr Amer 101 mL/min (>60); Globulin 3.6 g/dL (2.2-4.2); Glucose 105 mg/dL (74-106); Potassium 4.1 mmol/L (3.5-5.1); Protein, Total 7.5 g/dL (6.4-8.2); Sodium Level 138 mmol/L (136-145)
[2024-09-18 08:11] LABS: CA 15-3 55.5 U/mL (0.0-25.0); CA 27.29 68.9 U/mL (0.0-38.6)
== END | disposition home or self-care (01) ==
LOC: MRI 12:01
PROVIDERS: PCP Family Medicine; Referring Provider Nurse Practitioner Family; Visit Provider Nurse Practitioner Family
DX: C50.919 Malignant neoplasm of unspecified site of unspecified female breast (principal); C79.31 Secondary malignant neoplasm of brain; C78.00 Secondary malignant neoplasm of unspecified lung; C79.51 Secondary malignant neoplasm of bone; G93.9 Disorder of brain, unspecified
CPT/HCPCS: 36415; 70553; 80053; 85025; 86300; A9575

== ENCOUNTER → 2024-11-02 | Outpatient (CLI) | payer OTHER, SELFPAY ==
--- NOTE | 2024-11-02 06:33 | MRI_ITS ---
EXAM: MR LUMBAR SPINE WITHOUT AND WITH INTRAVENOUS CONTRAST CLINICAL INDICATION: LMD, eval for metastases TECHNIQUE: Multiplanar and multisequence MR images of the lumbar spine without and with intravenous contrast. CONTRAST: IV 19ml clariscan COMPARISON: No relevant prior studies available. FINDINGS: VERTEBRAE: See below. SPINAL CORD: Normal. Normal position and signal intensity of the conus medullaris. SOFT TISSUES: Normal. DISCS/SPINAL CANAL/NEURAL FORAMINA: L1-L2: Normal disc height and morphology. Normal spinal canal and lateral recesses. Normal neuroforamina. L2-L3: Normal disc height and morphology. Normal spinal canal and lateral recesses. Normal neuroforamina. L3-L4: Normal disc height and morphology. Normal spinal canal and lateral recesses. Normal neuroforamina. L4-L5: Grade 1 anterior listhesis of L4 on L5 likely related to underlying disc degeneration and facet arthropathy. Mild disc space narrowing. No disc protrusion. Mild narrowing of the right neural foramen related to facet arthropathy. L5-S1: Normal disc height and morphology. Normal spinal canal and lateral recesses. Normal neuroforamina. MRI/Spine Lumbar W/WO Contrast IMPRESSION: No evidence of metastatic disease. Electronically Signed: Cl Willis MD at 14:19 EST ,
--- NOTE | 2024-11-02 06:33 | MRI_ITS ---
STUDY: MRI CERVICAL SPINE WITH AND WITHOUT CONTRAST REASON FOR EXAM: Female, 64 years old. LMD, eval for metastases TECHNIQUE: Standardized fat and water weighted pulse sequences were obtained in the sagittal and axial following administration of IV 19ml clariscan. COMPARISON: None FINDINGS: Normal foramen magnum and brainstem-cervical cord junction. Normal craniovertebral junction. Normal anterior atlantoaxial articulation. Normal odontoid process. Normal cervical lordosis. Normal vertebral bodies and posterior osseous elements. C2-3: Normal endplates. Normal disc height, signal and morphology. Normal central canal and intervertebral neural foramina. C3-4: Normal endplates. Normal disc height, signal and morphology. Normal central canal and intervertebral neural foramina. C4-5: Normal endplates. Normal disc height, signal and morphology. Normal central canal and intervertebral neural foramina. C5-6: Grade 1 retrolisthesis Normal endplates. Normal disc height, signal and tiny central disc/osteophyte protrusion. Mild narrowing of central canal. Normal intervertebral neural foramina. C6-7: Normal endplates. Normal disc height, signal and morphology. Normal central canal and intervertebral neural foramina. C7-T1: Normal endplates. Normal disc height, signal and morphology. Normal central canal and intervertebral neural foramina. Normal cervical cord. Normal visualized soft tissue structures. MRI/Spine Cervical W/WO Contrast IMPRESSION: Mild narrowing of the central canal at C5-6 secondary to tiny central disc/osteophyte protrusion. No other significant abnormality. Specifically no evidence for metastatic disease. Electronically Signed: Walter Can MD at 22:42 EST Reading Location ID and State: [address] [place] [address] Tel , Service support ,
--- NOTE | 2024-11-02 06:33 | MRI_ITS ---
STUDY: MRI THORACIC SPINE WITH AND WITHOUT CONTRAST REASON FOR EXAM: Female, 64 years old. LMD eval for metastases TECHNIQUE: IV 19ml clariscan was administered for the contrast portion of the examination. COMPARISON: None. FINDINGS: Normal kyphosis of the thoracic spine. There is no substantial scoliosis. No evidence for acute fracture or subluxation. Small interosseous hemangioma in the T3 vertebral body T1-2, T2-3, T3-4, T4-5, T5-6, T6-7, T7-8, T8-9, T9-10, T10-11, T11-12: Normal endplates. There is a tiny left posterolateral disc protrusion at T7-8 mildly narrowing the spinal canal and minimally impinging upon the cord.. Normal visualized thoracic cord. Normal conus medullaris that terminates at T12-L1 The soft tissue structures are unremarkable. There is no enhancing abnormality. MRI/Spine Thoracic W/WO Contrast IMPRESSION: Tiny left posterolateral disc protrusion at T7-8 mildly impinging upon the cord. No evidence for acute fracture or metastatic disease. Incidental finding of right pleural effusion Electronically Signed: Walter Can MD at 18:59 EST ,
== END | disposition home or self-care (01) ==
PROVIDERS: PCP Family Medicine; Referring Provider Student in an Organized Health Care Education/Training Program; Visit Provider Student in an Organized Health Care Education/Training Program
DX: G96.198 Other disorders of meninges, not elsewhere classified (principal)
CPT/HCPCS: 72156; 72157; 72158; A9575

== ENCOUNTER → 2024-11-29 | Outpatient (CLI) | payer OTHER, SELFPAY ==
--- NOTE | 2024-11-29 07:35 | MRI_ITS ---
STUDY: MRI BRAIN WITH AND WITHOUT CONTRAST REASON FOR EXAM: Female, 64 years old. treated brain metastases -- compare to prior TECHNIQUE: Standardized multiplanar fat and water weighted pulse sequences were obtained. IV 18ml Clariscan was administered for the contrast portion of the examination. COMPARISON: MRI of the brain dated September 17, 2024. FINDINGS: * Redemonstration of moderate primarily subcortical white matter vasogenic edema, features of mild gyral edema, and sulcal effacement throughout the full length of the medial/parasagittal aspect of the right occipital lobe extending into the posterior superior aspect of the right parietal lobe= no significant interval change since the September 17, 2024 study * Redemonstration of dural and parenchyma based mass enhancement along the interhemispheric falx in the posterior parasagittal region of the right occipital lobe measuring 1.91 x 1.04 cm on the current study compared to the prior measurement of 2.87 x 1.60 cm, with visible improvement in debulking/decreasing in the size of the lesion, particularly in the left or right aspect of the brain parenchyma. Mild surrounding vasogenic edema is unchanged from the prior study. * Mild interval decrease in size of the intensely enhancing nodule attached to the dura and the posterior subcortical and medial and superior aspect of the left parietal lobe, from a prior measurement of 1.27 cm to the current measurement of 0.93 cm * Slight interval increase in size of the dural based subcortical nodule (3 mm) in the posterior lateral aspect of the left occipital lobe see image 49/140 series 12 on the current exam, compared to the prior study where the nodule measured 2 mm and was seen on image 10/25 series 13. * No new intra-axial or extra-axial enhancing lesions are present There is mild cerebral atrophy with widening of the extra-axial spaces and ventricular dilatation. Normal remaining white matter tracts of the supratentorial brain. There is no evidence for recent intracranial ischemia or other cause of cytotoxic edema on diffusion weighted imaging (DWI). Normal T2* images of the brain without demonstrated susceptibility artifact. There is no demonstrated hemosiderin stain. Normal bilateral basal ganglia. Normal thalami. There is no extra-axial fluid accumulation. Normal flow voids within the major intracranial circulation suggesting patency by spin echo criteria. Normal venous enhancement. Normal sella turcica, pituitary gland, infundibular stalk, optic chiasm and hypothalamus. Normal tectal plate and pineal gland. Normal midbrain, vahid and medulla. Normal cerebellum. Normal basal cisterns. Normal bilateral temporal bones. Normal bilateral internal auditory canals. No demonstrated orbital abnormality, within the constraints of a routine brain study. Normal visualized paranasal sinuses. Normal calvarium and skull base. Normal visualized soft tissue structures. Normal visualized upper cervical spine. MRI/Brain W/WO Contrast IMPRESSION: 1. 2 dominant dural and parenchymal based enhancing metastatic lesions of the left parietal lobe in the right parieto-occipital junction with surrounding vasogenic edema have decreased in size responding to treatment 2. Slight interval increase in size of the subcortical dural based enhancing metastatic lesion in the anterolateral aspect of the left occipital lobe from 2 mm up to 3.2 mm Electronically Signed: Efraín Cr MD at 15:50 EST ,
== END | disposition home or self-care (01) ==
PROVIDERS: PCP Family Medicine; Referring Provider Student in an Organized Health Care Education/Training Program; Visit Provider Student in an Organized Health Care Education/Training Program
DX: Z08 Encounter for follow-up examination after completed treatment for malignant neoplasm (principal); Z85.841 Personal history of malignant neoplasm of brain
CPT/HCPCS: 70553; A9575

== ENCOUNTER → 2025-01-10 | Outpatient (CLI) | payer OTHER, SELFPAY ==
--- NOTE | 2025-01-10 07:27 | CT_ITS ---
PROCEDURE: CT CHEST AND ABD W/ CONTRAST REASON FOR EXAM: History of left breast cancer. TECHNIQUE: Chest and abdomen CT with intravenous contrast. No oral contrast. CONTRAST: 100 cc of Isovue-300. COMPARISON: Comparison is made with prior study dated March 08, 2024. FINDINGS: CT CHEST: Hardware: None. A tissue clip marker is seen in the left breast. Lymph nodes: No mediastinal, hilar, or axillary lymphadenopathy. Heart and Vasculature: Normal heart size. No pericardial effusion. Thoracic aorta and pulmonary arteries are unremarkable. Coronary artery calcification. Lungs and Airways: There are multiple bilateral pulmonary nodules. Since prior study, the have increased both in number and size. The largest nodule is in the anterior aspect of the right lower lobe abutting the right major fissure and measures 2.1 cm. Pleura: There is a new small left pleural effusion. CT ABDOMEN: Liver: Diffuse fatty infiltration. There is a 2.4 cm x 1.4 cm faintly enhancing nodule in the peripheral lateral aspect of the right lobe of the liver as seen on axial image number 33 this was not well visualized on prior study. A metastatic deposit should be ruled out. Gallbladder: Unremarkable. Spleen: Unremarkable. Pancreas: Unremarkable. Adrenals: Unremarkable. Kidneys: Unremarkable. Bowel: Sigmoid diverticulosis. Lymph nodes: No suspicious lymph node enlargement at the upper abdomen. Vasculature: Mild diffuse atherosclerotic calcifications are noted. Peritoneum / Retroperitoneum: No ascites or free air at the upper abdomen. Bones: Degenerative changes of the spine. Stable sclerotic lesion in the T11 vertebrae. CT/CT Chest AND Abd W/ Contrast IMPRESSION: Interval increase in size and number of the bilateral pulmonary nodules. New right pleural effusion. 2.4 cm x 1.4 cm faintly enhancing nodule in the peripheral lateral aspect of th e right lobe of the liver. This is suggestive of possible metastasis. One or more dose reduction techniques were used (e.g., Automated exposure contr ol, adjustment of the mA and/or kV according to patient size, use of iterative reconstruction technique). Reading Location: [facility]
== END | disposition home or self-care (01) ==
LOC: CT 07:26
PROVIDERS: PCP Family Medicine; Referring Provider Nurse Practitioner Family; Visit Provider Nurse Practitioner Family
DX: C50.112 Malignant neoplasm of central portion of left female breast (principal); C78.00 Secondary malignant neoplasm of unspecified lung; C79.51 Secondary malignant neoplasm of bone; Z17.0 Estrogen receptor positive status [ER+]
CPT/HCPCS: 71260; 74160; Q9967; A4216

== ENCOUNTER → 2025-01-26 | Outpatient (CLI) | payer OTHER, SELFPAY ==
--- NOTE | 2025-01-26 07:15 | MRI_ITS ---
PROCEDURE: BRAIN W/WO CONTRAST REASON FOR EXAM: TREATED BRAIN METASTASES, FOLLOW UP MONITORING TECHNIQUE: Multisequence multiplanar MR images of the brain were obtained before and after the administration of 20 mL of Clariscan intravenous contrast. COMPARISON: 11/29/2024 FINDINGS: Unchanged dural/leptomeningeal enhancement along the medial right occipital lobe. Two unchanged nodular enhancing cortical lesions in the left occipital lobe posteriorly. New punctate enhancing focus along the medial left parieto-occipital lobe (post-contrast axial image 90/140) measuring 3.5 mm. No other discrete enhancing lesions. Unchanged vasogenic edema throughout the right occipital lobe. Interval improvement of the previous vasogenic edema in the posterior left occipital lobe. New focal area of edema surrounding the medial left parieto-occipital enhancing lesion. No diffusion restriction to suggest acute/subacute ischemia. No acute intracranial hemorrhage, midline shift or mass effect. Cerebral volume is age-appropriate. No hydrocephalus. Globes are intact. Paranasal sinuses are clear. Trace fluid in the mastoid air cells. MRI/Brain W/WO Contrast IMPRESSION: 1. Stable and minimally improved bilateral occipital lobe lesions as detailed a aide. 2. New focal enhancing cortical lesion in the medial left parieto-occipital lob e measuring 3.5 mm with minimal surrounding vasogenic edema. Reading Location: [facility]
== END | disposition home or self-care (01) ==
PROVIDERS: PCP Family Medicine; Referring Provider Student in an Organized Health Care Education/Training Program; Visit Provider Student in an Organized Health Care Education/Training Program
DX: G96.198 Other disorders of meninges, not elsewhere classified (principal)
CPT/HCPCS: 70553; A9575

== ENCOUNTER → 2025-02-08 | Outpatient (CLI) | payer OTHER, SELFPAY ==
--- NOTE | 2025-02-08 07:28 | US_ITS ---
EXAM: Right thoracentesis. CLINICAL HISTORY: Metastatic breast cancer. COMPARISON: Recent outside PET-CT scan was viewed on a separate PAC system. TECHNIQUE: See below. FINDINGS: Informed consent was obtained. Direct ultrasound guidance, aseptic technique, and local anesthesia were utilized. 7 Moroccan sheath needle was utilized to enter the right pleural space. The small catheter was advanced as the needle was removed. Subsequently, total of 710 cc of near translucent yellow tinged fluid was removed uneventfully. 100 cc of fluid was sent for requested laboratory analysis. The catheter was discontinued. Patient was discharged home directly following a postprocedural chest x-ray in good condition. US/Thoracentesis W US IMPRESSION: Uneventful right-sided ultrasound-guided thoracentesis as described. Reading Location: [place] [address]
[2025-02-08 08:00] VITALS: BP 130/82; PULSE 80; RESP 19; TEMP 36.1; O2SAT 99
--- NOTE | 2025-02-08 08:00 | RAD_ITS ---
EXAM: XR Chest, 1 View CLINICAL INDICATION: POST THORACENTESIS TECHNIQUE: Frontal view of the chest. COMPARISON: No relevant prior studies available. FINDINGS: LUNGS AND PLEURAL SPACES: Status post right-sided thoracentesis. Small residual right pleural effusion. No pneumothorax. HEART: Unremarkable. No cardiomegaly. MEDIASTINUM: Unremarkable. Normal mediastinal contour. BONES/JOINTS: Unremarkable. No acute fracture. RAD/Chest Insp/Exp 2 View IMPRESSION: Status post right-sided thoracentesis. Small residual right pleural effusion. No pneumothorax. Reading Location: [facility]
[2025-02-08 08:45] VITALS: BP 137/86; PULSE 75; RESP 16; O2SAT 97
[2025-02-08] MEDS: Lidocaine 2% (20 ml mdv) 20 ML Vial INFILT (08:58)
[2025-02-08 09:00] VITALS: BP 127/83; PULSE 76; RESP 16; O2SAT 99
[2025-02-08 09:11] VITALS: BP 114/76; PULSE 80; RESP 16; O2SAT 99
[2025-02-08 09:15] VITALS: BP 127/89; PULSE 84; RESP 16; O2SAT 98
--- NOTE | 2025-02-08 09:17 | FLU_PTH ---
PATIENT: CHASTITY MADISON LOC: U#:[id number] AGE/SX: 64/F ROOM: RE02/08/[address]: Dr. Gian Cassidy MD : 1960 BED: DIS: 02/08/2025 SPEC #: [id number] RECD: 02/08/25 13:51 STATUS: CRISTOBAL REQ #: [id number] RADHA: 02/08/25 09:[address]: Gian Cassidy DEPT: CYTOLOGY RECD BY: Andrew Montano ENTERED: 02/08/25 13:51 SP TYPE: Fluid OTHR DR: Dr. Nayeli Oconnell MD Tissues: A - THORACIC FLUID Procedures: Immunohistochemical Stains Special Stain Group II Surgery Specimen Level IV Cytospin Fluid IHC Stain ADDITIONAL HEADER OPERATION: Thoracentesis fluid PRE-OP DIAGNOSIS: Pleural effusion - right TISSUE SUBMITTED: A- Thoracentesis fluid for cytology DIAGNOSIS CYTOLOGY Thoracentesis fluid, right pleural effusion: * Few atypical cells - see note. * Note: IHCs performed on the fluid (cytospins) and the cellblock are positive for pancytokeratin, GATA3, and calretinin; Estrogen Receptor is negative. These findings favor reactive mesothelial cells. CYTOLOGY STUDY Slides are reviewed. These tests were developed and their performance characteristics determined by [facility]. They may not have been cleared or approved by the U.S. Food and Drug Administration. The FDA has determined that such clearance or approval is not necessary. The above immunohistochemical/dualISH markers are ordered and reviewed by the Pathologist. CYTOLOGY GROSS A. Received is 90 ml of yellow-cloudy fluid labeled with the patient's name and and designated per the requisition as Thoracentesis fluid. Submitted for cytology. Cell block and 2 pap-stained cytospins prepared. Mr 02/08/2025 CPT: 12863,19394,97127w9
[2025-02-08 09:23] VITALS: BP 126/82; PULSE 78; RESP 16; O2SAT 100
== END | disposition home or self-care (01) ==
PROVIDERS: PCP Family Medicine; Referring Provider Internal Medicine Medical Oncology; Visit Provider Internal Medicine Medical Oncology
DX: J90 Pleural effusion, not elsewhere classified (principal); C78.00 Secondary malignant neoplasm of unspecified lung; C50.412 Malignant neoplasm of upper-outer quadrant of left female breast
CPT/HCPCS: 32555; 71046; 88108; 88305; 88313

== ENCOUNTER → 2025-02-09 | Outpatient (CLI) | payer OTHER, SELFPAY ==
[2025-02-09] VITALS (19 sets, daily range): BP systolic 108–131; BP diastolic 63–91; PULSE 72–94; RESP 9–20; TEMP 36.1; O2SAT 92–99; BMI 34.7
[2025-02-09 13:17] LABS: Absolute Lymphocyte Count 0.99 X10^3/uL (0.83-4.51); Absolute Neutrophil Count 4.8 X10^3/uL (2.0-7.7); Basophil# 0.09 X10^3/uL; Basophil% 1.3 % (0-1); Eosinophil# 0.15 X10^3/uL; Eosinophils% 2.1 % (0-5); Hematocrit 40.9 % (37-47); Hemoglobin 14.5 g/dL (12.0-15.0); Lymphocyte # 0.99 X10^3/ul (0.83-4.51); Lymphocyte % 14.2 % (19-41); Mean Corp Hgb Conc 35.5 g/dL (32-36); Mean Corpuscular Hgb 33.5 pg (27.0-32.0); Mean Corpuscular Volume 94.5 fL (81-99); Monocyte# 0.86 X10^3/uL; Monocyte% 12.3 % (0-10); NRBC Flagged by Analyzer 0 % (0-5); Neutrophil # 4.84 X10^3/uL (2.7-7.7); Neutrophil % 69.4 % (47-70); Platelet Count 288 K/mm3 (150-450); Red Blood Count 4.33 M/mm3 (4.2-5.4)
[2025-02-09 13:20] LABS: Prothrombin Time (Protime)PT. 13.2 SECONDS (11.7-14.9)
[2025-02-09 13:21] LABS: Partial Thromboplast Time 26.3 Seconds (24.1-36.2)
[2025-02-09] MEDS: 0.9% Saline Lock 10 ML Syringe IV (13:38)
[2025-02-09] MEDS: Midazolam 2 MG/2 ML Syringe IV ×2 (13:46→14:10)
[2025-02-09] MEDS: fentaNYL 100 MCG/2 ML Ampul IV (13:47)
--- NOTE | 2025-02-09 13:50 | CT_ITS ---
PROCEDURE: BIOPSY/INJ OR NEEDLE PLACEMENT 02/09/2025 REASON FOR EXAM: BX OF LIVER. Breast cancer. TECHNIQUE: Targeted noncontrast CT images of the liver. One or more dose reduction techniques were used (e.g., Automated exposure control, adjustment of the mA and/or kV according to patient size, use of iterative reconstruction technique). COMPARISON: Diagnostic contrast-enhanced CT scan of January 10, 2025. PET-CT scan of February 01, 2025. FINDINGS: Informed consent was obtained. Conscious sedation and analgesia were administered. Patient's previous PET-CT scan of February 01, 2025 was reviewed along with previous contrast-enhanced diagnostic CT images of the abdomen obtained January 10, 2005 were reviewed. The 1.3 cm diameter hypodense lesion in segment VII was CT localized. 17 gauge/18 gauge coaxial automatic biopsy gun was utilized and passes were made to 3 separate areas within and about the lesion. Specimens were examined on site by the pathologist. Diagnosis is pending at this time. Entire apparatus was removed. The patient tolerated the procedure well was kept for a brief observation stay prior to discharge home. CT/Biopsy/Inj or Needle Placement IMPRESSION: Uneventful CT-guided liver biopsy as described. Reading Location: [place] [address]
[2025-02-09] MEDS: Lidocaine 2% (20 ml mdv) 20 ML Vial INFILT (14:04)
--- NOTE | 2025-02-09 14:30 | LIVB_PTH ---
PATIENT: CHASTITY MADISON LOC: [place] U#:[id number] AGE/SX: 64/F ROOM: RE02/09/[address]: Dr. Gian Cassidy MD : 1960 BED: DIS: 02/09/2025 SPEC #: [id number] RECD: 02/09/25 15:22 STATUS: CRISTOBAL REWilfred #: [id number] RADHA: 02/09/25 14:[address]: Gian Cassidy DEPT: SURGICAL PATHOLOGY RECD BY: Andrew Montano ENTERED: 02/09/25 15:22 SP TYPE: LIVER BX OT DR: Dr. Nayeli Oconnell MD Tissues: A - Liver, NOS Procedures: Trichrome (control) Special Stain Group I Surgery Specimen Level V Retic (control) Iron Stain (control) HEADER OPERATION: CT guided liver biopsy PRE-OP DIAGNOSIS: Breast cancer, liver mets TISSUE SUBMITTED: A- Liver biopsy 18 gauge x 3 cores MICROSCOPIC DIAGNOSIS A. LIVER, CT-GUIDED CORE BIOPSY: - NEGATIVE FOR MALIGNANCY. - MILD TRIADITIS, NONSPECIFIC (LYMPHOCYTES WITH OCCASIONAL PLASMA CELLS AND RARE NEUTROPHILS). - STEATOSIS 50-60%. - MINIMAL PORTAL FIBROSIS (TRICHROME STAIN). - NORMAL RETICULIN PATTERN (RETICULIN STAIN). - TRACE STAINABLE IRON (PRUSSIAN BLUE STAIN) COMMENT The specimen is evaluated at the time of biopsy by Dr. Calloway. Immediate Evaluation = Pass 1- low cellularity other cells. Pass 2- atypical cells MICROSCOPIC DESCRIPTION Slides are reviewed. All matched controls reacted appropriately. GROSS DESCRIPTION A. Received in formalin labeled, TrishChastity, evonignated, are four banegas cylindrical soft tissue cores that range from 0.3 to 1.9 cm long and average 0.1 cm in diameter. Totally submitted in one cassette. Maria Elena 02/09/2025 CPT:97845,16228, [id number]
== END | disposition home or self-care (01) ==
LOC: CT 12:44
PROVIDERS: Radiology Diagnostic Radiology; PCP Family Medicine; Referring Provider Internal Medicine Medical Oncology; Visit Provider Internal Medicine Medical Oncology
DX: Z01.818 Encounter for other preprocedural examination (principal); C78.00 Secondary malignant neoplasm of unspecified lung; C50.412 Malignant neoplasm of upper-outer quadrant of left female breast; G89.3 Neoplasm related pain (acute) (chronic); R93.89 Abnormal findings on diagnostic imaging of other specified body structures
CPT/HCPCS: 47000; 36415; 77012; 85025; 85610; 85730; 88307; 88312; 99156; 99157; A4216

== ENCOUNTER → 2025-02-17 | Outpatient (CLI) | payer OTHER, SELFPAY ==
--- NOTE | 2025-02-17 10:05 | NM_ITS ---
PROCEDURE: BONE SCAN WHOLE BODY 02/17/2025 REASON FOR EXAM: BREAST CA TECHNIQUE: Whole-body bone scan with anterior and posterior views. Imaging at 3.5 hours. RADIOPHARMACEUTICAL: 26.7 mCi Technetium-99m MDP IV COMPARISON: CORRELATION WITH EXISTING RELEVANT IMAGING STUDIES (i.e. x-ray, MRI, CT, etc.): No existing relevant imaging study available or patient did not have a previous relevant imaging study. FINDINGS: Bones: Focal increased radiopharmaceutical uptake seen at the costochondral junction at the 6th rib medially on the left side suggestive of possible costochondritis. Mild increased markings in the medial aspects of both knee joints suggestive of degenerative change. Kidneys: Normal uptake. NM/Bone Scan Whole Body IMPRESSION: Focal increased uptake in the left 6th costochondral junction most likely secon kavin to costochondritis. Reading Location: [place] [address]
== END | disposition home or self-care (01) ==
LOC: NM 10:04
PROVIDERS: PCP Family Medicine; Referring Provider Internal Medicine Medical Oncology; Visit Provider Internal Medicine Medical Oncology
DX: C50.412 Malignant neoplasm of upper-outer quadrant of left female breast (principal); R93.89 Abnormal findings on diagnostic imaging of other specified body structures
CPT/HCPCS: 78306; A9503

== ENCOUNTER → 2025-03-28 | Outpatient (CLI) | payer OTHER, SELFPAY ==
--- NOTE | 2025-03-28 06:48 | MRI_ITS ---
EXAM: BRAIN W/WO CONTRAST CLINICAL HISTORY: BRAIN METASTASES, TREATED, MONITORING COMPARISON: January 26, 2025. TECHNIQUE: Multiplanar, multisequence MR images of the brain were obtained without and with 17 cc gadolinium contrast material. FINDINGS: Enhancing lesions: There is a 0.5 cm enhancing lesion in the mid right cerebellar hemisphere, image 4/26, new. There is a 0.2 and 0.5 cm enhancing lesion in the right cerebellar hemisphere, image 6/26, new. There is a 0.4 cm enhancing extra-axial lesion at the tentorium, left of midline, image 9/26, new. There is a 0.3 cm enhancing lesion in the surface of the lower left occipital lobe, image 10/26, 0.4 cm on the prior. Central portion of the right occipital lobe shows heterogeneous abnormal enhancement measuring 2.2 x 3.7 cm, 1.8 by 3.0 cm on the prior. There is a enhancing left occipital lesion measuring 1.1 x 0.8 cm, image 13/26, 0.9 x 0.7 cm on the prior. There is a left occipital lesion measuring 1.0 x 0.7 cm, image 18/26, 0.5 cm on the prior. There is a 0.6 cm enhancing left frontal lesion, image 14, 0.6 cm left frontal lesion, image 15, new compared to the prior. T2 shine through is visible associated with the lesion in the right occipital lobe.. No cerebellar tonsillar ectopia. No sellar/suprasellar signal abnormalities. The ocular globes and intraorbital soft tissues are symmetrically unremarkable. There is fluid signal in a portion of the mastoid air cells on the right and left, similar to the prior. MRI/Brain W/WO Contrast IMPRESSION: There is fluid signal in a portion of the mastoid air cells on the right and le ft, similar to the prior. There is interval progression of cerebral metastatic disease as described above . Reading Location: [facility]
== END | disposition home or self-care (01) ==
PROVIDERS: PCP Family Medicine; Referring Provider Student in an Organized Health Care Education/Training Program; Visit Provider Student in an Organized Health Care Education/Training Program
DX: G96.198 Other disorders of meninges, not elsewhere classified (principal); C79.31 Secondary malignant neoplasm of brain
CPT/HCPCS: 70553; A9575

== ENCOUNTER 2025-04-12 10:16 | Emergency (ER) | payer OTHER, SELFPAY ==
[2025-04-12 10:19] VITALS: BP 95/74; PULSE 78; RESP 18; TEMP 36.4; O2SAT 100
[2025-04-12 10:22] VITALS: BMI 29.5
--- NOTE | 2025-04-12 10:38 | ED.RN ---
PT IS UNDER TX FOR METASTATIC BREAST CA THAT HAS METASTASES TO THE LIVER, BRAIN, LUNG. C/O INCREASED PAIN TO THE RECTUM, UNABLE TO GET COMFORTABLE OR SLEEP. S/O AND DAUGHTER AT THE BEDSIDE.
--- NOTE | 2025-04-12 10:49 | CT_ITS ---
PROCEDURE: BRAIN/HEAD W/WO CONTRAST 04/12/2025 REASON FOR EXAM: CONFUSION, METASTATIC BREAST CANCER to the brain TECHNIQUE: Head CT before and following intravenous contrast. Coronal and Sagittal reconstruction series were provided. CONTRAST: Contrast dose = not reported One or more dose reduction techniques were used (e.g., Automated exposure control, adjustment of the mA and/or kV according to patient size, use of iterative reconstruction technique). RADIATION DOSE SUMMARY: DLP: 3472.97 MGycm COMPARISON: March 28, 2025 MRI FINDINGS: There is postcontrast enhancement in the right occipital region along the falx measuring 3.0 x 1.5 cm, similar to the prior. There is enhancement in the left posterior occipital lobe measuring 1.3 x 1.0 cm, similar to the prior. There is enhancing lesion to the left of the falx in the occipital lobe measuring 0.8 x 0.8 cm, image 28/43, similar to the prior. There is low-density throughout the right posterior temporal and occipital lobe and left occipital lobe consistent with gliosis and edema with a similar distribution to the recent MRI. There is no visible acute hemorrhage. There is no midline shift or evidence of herniation. There is no visible acute bony abnormality. The visualized paranasal sinuses are clear. CT/Brain/Head W/WO Contrast IMPRESSION: There is postcontrast enhancement in the right occipital region along the falx measuring 3.0 x 1.5 cm, similar to the prior. There is enhancement in the left posterior occipital lobe measuring 1.3 x 1.0 c m, similar to the prior. There is enhancing lesion to the left of the falx in the occipital lobe measuring 0.8 x 0.8 cm, im age 28/43, similar to the prior. There is low-density throughout the right posterior temporal and occipital lobe and left occipital lobe consistent with gliosis and edema with a similar distribution to the recent MRI. There is no visible acute hemorrhage. There is no midline shift or evidence of herniation. Reading Location: [facility]
--- NOTE | 2025-04-12 10:50 | CT_ITS ---
EXAM: CT Chest, Abdomen and Pelvis With Intravenous Contrast CLINICAL INDICATION: RECTAL PAIN WITH NORMAL EXAM, MET BR CA TECHNIQUE: Axial computed tomography images of the chest, abdomen and pelvis with intravenous contrast. This CT exam was performed using one or more of the following dose reduction techniques: automated exposure control, adjustment of the mA and/or kV according to patient size, and/or use of iterative reconstruction technique. COMPARISON: CT Chest Abdomen Pelvis dated 01/10/2025 FINDINGS: ARTIFACTS: Attenuation artifacts. CHEST: LUNGS AND PLEURAL SPACES: Right pleural effusion with compressive atelectasis and numerous pulmonary nodules, stable, concerning for metastasis. No pneumothorax. HEART: Unremarkable. No cardiomegaly. No significant pericardial effusion. No significant coronary artery calcifications. THYROID: Right thyroid nodule. ABDOMEN: LIVER: Fatty liver with multiple hypodense lesions, which increased in size and number since the prior exam, concerning for worsening metastasis. GALLBLADDER AND BILE DUCTS: Unremarkable. No calcified stones. No ductal dilation. PANCREAS: Unremarkable. No ductal dilation. No mass. SPLEEN: Unremarkable. No splenomegaly. ADRENALS: Unremarkable. No mass. KIDNEYS AND URETERS: Mild right hydronephrosis without obstructing calculus. No solid mass. No stones within either kidney. No hydronephrosis. STOMACH AND BOWEL: Fecal retention in the colon consistent with constipation. No obstruction. No mucosal thickening. PELVIS: APPENDIX: No findings to suggest acute appendicitis. BLADDER: Unremarkable. No mass. REPRODUCTIVE: Unremarkable as visualized. CHEST, ABDOMEN and PELVIS: INTRAPERITONEAL SPACE: Unremarkable. No significant fluid collection. No free air. BONES/JOINTS: Multiple osteoblastic lesions of the spine, new since the prior exam, concerning for worsening metastasis. No acute fracture. SOFT TISSUES: Unremarkable. VASCULATURE: The ascending thoracic aorta is ectatic measuring 4.3 cm in maximum diameter. No aortic aneurysm. LYMPH NODES: Unremarkable. No enlarged lymph nodes. CT/CT Chest, Abd, Pel w/Contrast IMPRESSION: 1. The ascending thoracic aorta is ectatic measuring 4.3 cm in maximum diamete r. 2. Mild right hydronephrosis without obstructing calculus. 3. Multiple osteoblastic lesions of the spine, new since the prior exam, mariajose rning for worsening metastasis. 4. Right pleural effusion with compressive atelectasis and numerous pulmonary nodules, stable, concerning for metastasis. 5. Fecal retention in the colon consistent with constipation. 6. No obstructive uropathy. Reading Location: [facility]
--- NOTE | 2025-04-12 10:51 | EX.ED.DYSGE1 ---
HPI History of Present Illness Chief Complaint: Back Informant: patient and family Narrative Narrative: 64-year-old female has metastatic breast cancer to lungs, brain, liver, she is known about a lot of this since September and has been undergoing chemotherapy and is doing whole brain radiation. Several metastases been found in the brain. Over the past 2 to 3 days this past weekend, she has been severely confused and speaking out of her head according to the . Same she was short of breath on occasion, although she did not appear to be, and actually more alert and less confused this morning but also complaining of rectal pain. Very poor appetite, rare bowel movements, no blood that she is seen. Recent hematuria and diagnosed with UTI finished those antibiotics a week or 2 ago. No new urinary symptoms. No fevers or chills. Took her morphine 30 mg this morning and feels a little better with regards to the pain but still in discomfort. She points to the rectum. Pain in her right low back has been chronic and unchanged. Similar with the right upper quadrant. PFSH PFSH Medical History Metastases to the liver Metastasis from breast cancer Rash Low back pain Claustrophobia ER+ (estrogen receptor positive status) Anxiety due to invasive procedure Encounter for education Osteopenia Wears glasses Wears partial dentures Post-menopausal Cancer Alcohol use Psoriasis Arthritis Back pain Pneumonia Former smoker Home Medications ?Medication ?Instructions ?Recorded ?Last Taken ?Type acetaminophen 500 mg tablet 500 mg PO Q6H PRN pain 05/28/23 Unknown History potassium chloride 20 mEq 20 meq PO DAILY #14 tabs 02/11/24 Unknown Rx tablet,extended release magnesium 250 mg tablet 250 mg PO QDAY 07/28/24 Unknown History memantine 5 mg tablet 5 mg PO BID #133 tabs 02/15/25 Unknown Rx ondansetron 8 mg disintegrating 8 mg PO Q8H PRN nausea and 03/07/25 Unknown Rx tablet vomiting #30 tabs cholecalciferol (vitamin D3) 25 25 mcg PO BID 03/21/25 Unknown History mcg (1,000 unit) capsule oxycodone-acetaminophen 5 mg-325 1 tab PO Q4H PRN pain 30 days #60 03/21/25 Unknown Rx mg tablet (Percocet) tabs triamcinolone acetonide 0.1 % 1 applic topical BID #454 grams 03/21/25 Unknown Rx topical cream dexamethasone 4 mg tablet 4 mg PO TID #30 tabs 04/04/25 Unknown Rx Held on 04/12/25. Instructions: Resume on 04/12/25. resume at bedtime tonight capivasertib 200 mg tablet (Truqap) PO 04/12/25 Unknown History ciprofloxacin HCl 500 mg tablet 500 mg PO BID #14 TABLETS 04/12/25 Unknown Rx morphine 30 mg tablet,extended 30 mg PO Q8H PRN PRN pain 15 days 04/12/25 Unknown Rx release #30 tabs Allergy/AdvReac Type Severity Reaction Status Date / Time acetaminophen (From Allergy Nausea/Vom/ Verified 04/12/25 10:39 Tylenol-Codeine) Diarrhea codeine (From Allergy Nausea/Vom/ Verified 04/12/25 10:39 Tylenol-Codeine) Diarrhea Family History Mother Breast cancer Surgical History Hx of tonsillectomy History of Social History Smoking Status: Never smoker alcohol intake: never substance use type: does not use ROS ROS ED Constitutional Constitutional ED: Denies chills or fever(s) Eyes Eyes: Denies change in vision or diplopia ENT ENT ED: Denies rhinorrhea or sore throat Cardiovascular Cardiovascular: Denies chest pain or palpitations Respiratory/Chest Respiratory/Chest: Reports other Details: Denies dyspnea now but told she felt short of breath 2 days ago at 1 point ; Denies cough Gastrointestinal Gastrointestinal: Reports as per HPI and abdominal pain; Denies diarrhea, melena, nausea, rectal bleeding or vomiting Genitourinary Genitourinary ED: Denies dysuria or hematuria Musculoskeletal Musculoskeletal: Reports back pain; Denies neck pain Integumentary Denies abscess or rash Neurologic Neurologic: Reports as per HPI, behavior changes and confusion; Denies headache(s), paresthesias, seizures, syncope or weakness Psychiatric Psychiatric: Denies suicidal thoughts EXAM Physical Exam Const Vital Signs: 04/12/25 10:19 04/12/25 11:15 04/12/25 13:00 Temperature 97.5 F L Temperature Source Oral Pulse Rate 78 59 L 60 Respiratory Rate 18 16 Blood Pressure 95/74 115/68 119/80 Blood Pressure Mean 81 83 93 Pulse Ox 100 99 96 Oxygen Delivery Method Room Air Room Air Room Air 04/12/25 15:00 04/12/25 15:52 Temperature 97.5 F L Temperature Source Pulse Rate 81 84 Respiratory Rate 16 Blood Pressure 111/69 111/69 Blood Pressure Mean 83 83 Pulse Ox 98 98 Oxygen Delivery Method Room Air Positive well nourished and well developed General Appearance ED: well developed and NAD HEENT Reports moist mucous membranes normocephalic and atraumatic Eyes PERRL and EOMs intact bilaterally Neck full ROM and supple Resp normal respiratory effort and clear to auscultation bilaterally Cardio regular rate, regular rhythm and no murmurs GI non-distended GI Narrative: Tender without guarding or rebound in the right upper quadrant otherwise benign abdomen. No palpable masses. Abdominal wall/inspection unremarkable. Rectal exam is normal. There is no external hemorrhoids, mass, or perianal/perirectal tenderness. CHANNING is benign. Auscultation: normoactive bowel sounds Palpation: soft Back/Spine Back/Spine Narrative: Mild tenderness with palpation in the right paraspinal lumbosacral musculature. No true CVA tenderness. General Back: other FROM Extremity normal to inspection General Extremety ED: Negative for edema, pulses abnormal or tenderness General Extremity: Negative for edema or pulses abnormal Neuro CN's II-XII intact bilaterally and no sensory deficits noted Sensorium / Orientation: awake, alert and orientation impaired Motor Exam: strength 5/5 throughout Psych mental status grossly normal Skin no rashes or lesions noted and no wounds MDM MDM MDM Narrative Medical decision making narrative: Labs, urinalysis, chest x-ray all unremarkable except for right pleural effusion on my interpretation, 2 views. Radiology in agreement, but while she was in CT, the technicians asked me if we would like to add a CT of the chest, after looking to the chest x-ray I agree think this would be helpful. It shows no pneumonia, just some compressive atelectasis related to her effusion on the right. Does not look large like she needs an emergent thoracentesis. I reviewed the CT brain, with and without contrast, as well as a chest/abdomen/pelvis with contrast imaging as well as report which I agree with. Everything that was noted with regards to metastases was seen prior, except for new osteoblastic metastases to the lower spine and ilium, this could be explaining her back pain. Nothing acute abdomen/pelvis or retroperitoneum although some mild hydro on the right, she does not have focal pain or tenderness here. There is no sign of an obstructive uropathy. She does have indicators of infection on her urine. I am sending her for culture and going to treat her empirically because of this, covering for an upper source although the patient does not have severe right CVA tenderness, fevers, chills, vomiting to suggest this is clearly acute pyelonephritis. I discussed with Dr. Cassidy her oncologist. He was okay with going up on her morphine every 8 hours instead of every 12, and continuing the course otherwise also advising that we give her a single dose of Decadron 20 mg here. She is on 4 mg 3 times daily and she will continue that. Discussed with family they are okay taking her home at this time. Lab Data Attestation: I reviewed the patient's lab results. Labs: Laboratory Results - last 24 hr 04/12/25 04/12/25 10:56 12:49 WBC 7.9 RBC 4.78 Hgb 14.6 Hct 41.1 MCV 86.0 MCH 30.5 MCHC 35.5 RDW Std Deviation 39.1 RDW Coeff of Dylan 12.4 Plt Count 197 MPV 10.1 Immature Gran % (Auto) 4.400 H Neut % (Auto) 73.4 H Lymph % (Auto) 7.4 L [place] % (Auto) 13.5 H Eos % (Auto) 0.9 Baso % (Auto) 0.4 Absolute Neuts (auto) 5.8 Absolute Lymphs (auto) 0.58 L Nucleated RBC % 0 Sodium 132 L Potassium 4.1 Chloride 94 L Carbon Dioxide 23.6 Anion Gap 14 BUN 36 H Creatinine 1.27 H Estim Creat Clear Calc 46.42 L Est GFR (MDRD) Non-Af 48 L BUN/Creatinine Ratio 28.2 H Glucose 101 H Calcium 9.1 Total Bilirubin 1.03 AST 44 H ALT 37 H Alkaline Phosphatase 84 Total Protein 6.1 Albumin 3.6 Globulin 2.5 Albumin/Globulin Ratio 1.5 Lipase 52 Urine Color Yellow Urine Clarity Clear Urine pH 6.5 Ur Specific [place] 1.005 Urine Protein 30 H Urine Glucose (UA) Normal Urine Ketones Negative Urine Occult Blood 10 H Urine Nitrite Negative Urine Bilirubin Negative Urine Urobilinogen Normal Ur Leukocyte Esterase 500 H Urine RBC 0-5 SEEN Urine WBC 25-50 SEEN Ur Squamous Epith Cells 0-5 SEEN Urine Bacteria 0 SEEN Urine Mucus 0 SEEN Radiography Diagnostic Testing: Clinical Impression(s) from Imaging Studies Brain CT 04/12/25 10:49 IMPRESSION: There is postcontrast enhancement in the right occipital region along the falx measuring 3.0 x 1.5 cm, similar to the prior. There is enhancement in the left posterior occipital lobe measuring 1.3 x 1.0 cm, similar to the prior. There is enhancing lesion to the left of the falx in the occipital lobe measuring 0.8 x 0.8 cm, image 28/43, similar to the prior. There is low-density throughout the right posterior temporal and occipital lobe and left occipital lobe consistent with gliosis and edema with a similar distribution to the recent MRI. There is no visible acute hemorrhage. There is no midline shift or evidence of herniation. Reading [facility] Chest/Abdomen/Pelvis CT 04/12/25 10:50 IMPRESSION: 1. The ascending thoracic aorta is ectatic measuring 4.3 cm in maximum diameter. 2. Mild right hydronephrosis without obstructing calculus. 3. Multiple osteoblastic lesions of the spine, new since the prior exam, concerning for worsening metastasis. 4. Right pleural effusion with compressive atelectasis and numerous pulmonary nodules, stable, concerning for metastasis. 5. Fecal retention in the colon consistent with constipation. 6. No obstructive uropathy. Reading Location: [facility] Chest X-Ray 04/12/25 11:27 IMPRESSION: Small right pleural effusion with right basilar atelectasis and/or infiltrate. Reading Location: [facility] Management Discussion w/another healthcare provider: Hydrate Control Tender (Hematology oncology Dr. Cassidy) Discharge Plan Triage Chief Complaint: Back ED Provider: Curt Ochoa Dx/Rx/DC Orders Clinical Impression: Low back pain, Breast cancer metastasized to lung, Malignant neoplasm metastatic to brain, Metastatic cancer to spine, Transient confusion, UTI (urinary tract infection) Instructions: UTIs, Bone Metastases Prescriptions: New ciprofloxacin HCl 500 mg tablet 500 mg PO BID Qty: 14 0RF Continued acetaminophen 500 mg tablet 500 mg PO Q6H PRN (Reason: pain) potassium chloride 20 mEq tablet extended release 20 meq PO DAILY Qty: 14 0RF magnesium 250 mg tablet 250 mg PO QDAY ondansetron 8 mg tablet,disintegrating 8 mg PO Q8H PRN (Reason: nausea and vomiting) Qty: 30 2RF cholecalciferol (vitamin D3) 25 mcg (1,000 unit) capsule 25 mcg PO BID oxycodone-acetaminophen [Percocet] 5-325 mg tablet 1 tab PO Q4H PRN (Reason: pain) 30 Days Qty: 60 0RF triamcinolone acetonide 0.1 % cream 1 applic topical BID Qty: 454 0RF Truqap 200 mg tablet PO memantine 5 mg tablet 5 mg PO BID Qty: 133 0RF Rx Instructions: take two tabs PO bid x 1 month, then taper to 5 mg (one tab) bid x 1 week then 5 mg qd x 1 week then stop Changed morphine 30 mg tablet extended release 30 mg PO Q8H PRN PRN (Reason: pain ) 15 Days Qty: 30 0RF Held dexamethasone 4 mg tablet 4 mg PO TID Qty: 30 0RF Hold Instructions: Resume on 04/12/25. resume at bedtime tonight Primary Care Provider: Nayeli Oconnell Referrals: Gian Cassidy MD [Med Staff - Active Staff] - 04/14/25 (call for appt if trouble controlling symptoms) Print Language: Mauritian Disposition Disposition: Home, Self Care Discharge Date/Time: 04/12/25 15:56
[2025-04-12] MEDS: Morphine 4 MG/ML Syringe IV (11:10)
[2025-04-12] MEDS: Ondansetron 4 MG/2 ML Vial IV (11:10)
[2025-04-12 11:15] VITALS: BP 115/68; PULSE 59; RESP 16; O2SAT 99
[2025-04-12 11:25] LABS: Absolute Lymphocyte Count 0.58 X10^3/uL (0.83-4.51); Absolute Neutrophil Count 5.8 X10^3/uL (2.0-7.7); Basophil# 0.03 X10^3/uL; Basophil% 0.4 % (0-1); Eosinophil# 0.07 X10^3/uL; Eosinophils% 0.9 % (0-5); Hematocrit 41.1 % (37-47); Hemoglobin 14.6 g/dL (12.0-15.0); Lymphocyte # 0.58 X10^3/ul (0.83-4.51); Lymphocyte % 7.4 % (19-41); Mean Corp Hgb Conc 35.5 g/dL (32-36); Mean Corpuscular Hgb 30.5 pg (27.0-32.0); Mean Platelet Vol. 10.1 fl (6.2-12.0); Monocyte# 1.06 X10^3/uL; Monocyte% 13.5 % (0-10); NRBC Flagged by Analyzer 0 % (0-5); Neutrophil # 5.78 X10^3/uL (2.7-7.7); Neutrophil % 73.4 % (47-70); POSITIVE DIFFERENTIAL YES; Platelet Count 197 K/mm3 (150-450); RBC Distribution Width CV 12.4 % (11.6-14.6); RBC Distribution Width SD 39.1 fl (35.1-43.9); Red Blood Count 4.78 M/mm3 (4.2-5.4); White Blood Count 7.9 K/mm3 (4.4-11.0)
--- NOTE | 2025-04-12 11:27 | RAD_ITS ---
PROCEDURE: CHEST PA AND LATERAL 04/12/2025 REASON FOR EXAM: INTERMITTENT SOB TECHNIQUE: Frontal and lateral views of the chest. COMPARISON: Prior study dated February 08, 2025. FINDINGS: Hardware: EKG electrodes are seen. Heart: Heart size upper limits of normal. Mediastinum: Tortuosity and calcification of the aortic arch. Lungs: Small right pleural effusion with underlying right basilar atelectasis. Bones: Degenerative changes are identified within the thoracic spine. RAD/Chest PA and Lateral IMPRESSION: Small right pleural effusion with right basilar atelectasis and/or infiltrate. Reading Location: [facility]
[2025-04-12 11:45] LABS: ALB/GLOB Ratio 1.5 RATIO (0.9-2.4); AST(SGOT) 44 U/L (<=31); Alanine Aminotransfer ALT/SGPT 37 U/L (<=34); Albumin, Serum 3.6 g/dL (3.4-4.8); Alkaline Phosphatase 84 U/L (35-104); Anion Gap 14 (5-15); BUN 36 mg/dL (4-19); BUN/Creat Ratio 28.2 RATIO (10-20); Calcium,Total 9.1 mg/dL (7.6-11.0); Carbon Dioxide 23.6 mmol/L (21.0-32.0); Chloride 94 mmol/L (98-108); Creatinine, Serum 1.27 mg/dL (0.70-1.20); EST Glomerular Filtration Rate 48 (>60); Estimated Creatinine Clearance 46.42 ml/min (50-250); Globulin 2.5 g/dL (2.2-4.2); Glucose 101 mg/dL (70-99); Lipase 52 U/L (13-75); Potassium 4.1 mmol/L (3.3-5.1); Protein, Total 6.1 g/dL (5.9-8.4); Sodium Level 132 mmol/L (133-145); Total Bilirubin 1.03 mg/dL (0.00-1.30)
[2025-04-12 13:00] VITALS: BP 119/80; PULSE 60; O2SAT 96
[2025-04-12 13:12] LABS: Bacteria 0 SEEN /hpf (None Seen); Mucous, Urine 0 SEEN /hpf (<or=2+)
[2025-04-12 13:21] LABS: Color, Urine Yellow (Yellow); Glucose, Dipstick Normal (Normal); Ketone-Dipstick Negative (Negative); Leukocyte Esterase-Dipstick 500 /ul (Negative); Nitrite-Dipstick Negative (Negative); Occult Blood-Urine 10 /ul (Negative); Protein-Dipstick 30 mg/dl (Negative); Specific Gravity, Urine 1.005 (1.002-1.030); Urine Bilirubin Dipstick Negative (Negative); Urine Clarity Clear (Clear); Urine Urobilinogen Normal (Normal); Urine pH 6.5 (5.0 - 8.0)
[2025-04-12 14:39] LABS: Red Blood Cells-Urine 0-5 SEEN /hpf (0-5); Squamous Epithelial Cells - UA 0-5 SEEN /hpf (5-10)
[2025-04-12 14:40] LABS: White Blood Cells 25-50 SEEN /hpf (0-5)
[2025-04-12 15:00] VITALS: BP 111/69; PULSE 81; O2SAT 98
[2025-04-12] MEDS: HYDROmorphone 1 MG/ML Syringe IV (15:07)
[2025-04-12] MEDS: dexAMETHasone 20 MG/5 ML Vial IV (15:08)
[2025-04-12] MEDS: Ceftriaxone 1 GM/50 ML BAG IV (15:17)
[2025-04-12 15:52] VITALS: BP 111/69; PULSE 84; RESP 16; TEMP 36.4; O2SAT 98
== END 2025-04-12 15:56 | disposition home or self-care (01) ==
PROVIDERS: Emergency Provider Emergency Medicine; PCP Family Medicine; Visit Provider Emergency Medicine
DX: M54.50 Low back pain, unspecified (principal); C78.00 Secondary malignant neoplasm of unspecified lung; C79.31 Secondary malignant neoplasm of brain; C78.7 Secondary malignant neoplasm of liver and intrahepatic bile duct; C79.51 Secondary malignant neoplasm of bone; C41.2 Malignant neoplasm of vertebral column; C50.919 Malignant neoplasm of unspecified site of unspecified female breast; N39.0 Urinary tract infection, site not specified; G89.29 Other chronic pain; R41.0 Disorientation, unspecified; Z17.0 Estrogen receptor positive status [ER+]; Z79.899 Other long term (current) drug therapy; Z87.891 Personal history of nicotine dependence
CPT/HCPCS: 70470; 71046; 71260; 74177; 80053; 81001; 83690; 85025; 87086; 96365; 96375; 99283; Q9967; A4216; J2405

== ENCOUNTER 2025-04-17 18:34 | Observation (INO) | payer OTHER, SELFPAY ==
[2025-04-17 18:37] VITALS: BP 129/108; PULSE 119; RESP 14; TEMP 36.3; O2SAT 98
--- NOTE | 2025-04-17 18:59 | EX.ED.DYSGE1 ---
HPI History of Present Illness Chief Complaint: Other, Pain/Inj Informant: patient, spouse/S.O. and family Onset/Context/Timing Onset: Today Context: Gradual Onset Timing: Continuous Maximum Severity: Moderate Narrative Narrative: 64-year-old female history of breast cancer with spine and brain mets. Patient currently is on morphine at home 30 mg Q8. She has had 2 recent visits with unremarkable labs and CAT scans finding of additional metastases. Family just thinks she is having significant pain today that they are unable to control with oral medications. She is currently not DNR nor on hospice or palliative care. Prior similar symptoms: Yes Recent Illness/Hospitalization: No (Recent emergency department visits. But no admission.) PFSH PFSH Medical History Metastases to the liver Metastasis from breast cancer Rash Low back pain Claustrophobia ER+ (estrogen receptor positive status) Anxiety due to invasive procedure Encounter for education Osteopenia Wears glasses Wears partial dentures Post-menopausal Cancer Alcohol use Psoriasis Arthritis Back pain Pneumonia Former smoker Home Medications ?Medication ?Instructions ?Recorded ?Last Taken ?Type acetaminophen 500 mg tablet 500 mg PO Q6H PRN pain 05/28/23 Unknown History potassium chloride 20 mEq 20 meq PO DAILY #14 tabs 02/11/24 Unknown Rx tablet,extended release magnesium 250 mg tablet 250 mg PO QDAY 07/28/24 Unknown History memantine 5 mg tablet 5 mg PO BID #133 tabs 02/15/25 Unknown Rx ondansetron 8 mg disintegrating 8 mg PO Q8H PRN nausea and 03/07/25 Unknown Rx tablet vomiting #30 tabs cholecalciferol (vitamin D3) 25 25 mcg PO BID 03/21/25 Unknown History mcg (1,000 unit) capsule oxycodone-acetaminophen 5 mg-325 1 tab PO Q4H PRN pain 30 days #60 03/21/25 Unknown Rx mg tablet (Percocet) tabs triamcinolone acetonide 0.1 % 1 applic topical BID #454 grams 03/21/25 Unknown Rx topical cream dexamethasone 4 mg tablet 4 mg PO TID #30 tabs 04/04/25 Unknown Rx Held on 04/12/25. Instructions: Resume on 04/12/25. resume at bedtime tonight capivasertib 200 mg tablet (Truqap) PO 04/12/25 Unknown History ciprofloxacin HCl 500 mg tablet 500 mg PO BID #14 TABLETS 04/12/25 Unknown Rx morphine 30 mg tablet,extended 30 mg PO Q8H PRN PRN pain 15 days 04/12/25 Unknown Rx release #30 tabs Allergy/AdvReac Type Severity Reaction Status Date / Time acetaminophen (From Allergy Nausea/Vom/ Verified 04/17/25 18:41 Tylenol-Codeine) Diarrhea codeine (From Allergy Nausea/Vom/ Verified 04/17/25 18:41 Tylenol-Codeine) Diarrhea Family History Mother Breast cancer Surgical History Hx of tonsillectomy History of Social History Smoking Status: Never smoker alcohol intake: never substance use type: does not use ROS ROS ED ROS Narrative No recent illness. Decreased oral intake. Pain from her metastases to her spine and liver. Constitutional Constitutional ED: Denies chills or fever(s) Eyes Eyes: Denies blurry vision ENT ENT ED: Denies ear pain Cardiovascular Cardiovascular: Denies chest pain Respiratory/Chest Respiratory/Chest: Denies cough or dyspnea Gastrointestinal Gastrointestinal: Denies abdominal pain, constipation, diarrhea, melena, nausea or vomiting Genitourinary Genitourinary ED: Denies dysuria or hematuria Musculoskeletal Musculoskeletal: Denies arthralgias or back pain Integumentary Denies abscess or Abrasions Neurologic Neurologic: Denies headache(s) Psychiatric Psychiatric: Denies anxiety or depression Endocrine Endocrinology: Denies cold intolerance Hematologic/Lymphatic Hematologic/Lymphatic: Reports none Allergic/Immunologic Allergic/Immunologic ED: Denies mouth swelling, tongue swelling or urticaria EXAM Physical Exam Narrative Exam Narrative: 64-year-old female vital signs stable she is tachycardic at 119. She is afebrile. Pulse ox 90%. Multiple family members are present in the room. Clinically she looks dehydrated. H EENT exam pupils round reactive light. Dry mucous membranes. No signs of trauma to her head. Neck nontender no lymphadenopathy. Lungs clear to auscultation bilaterally. Heart tachycardic 120 no murmur. Chest wall ribs nontender. Abdomen soft nontender. Normal bowel sounds. No peritoneal signs. No obstruction. Moving all 4 extremities. Neurologically she is awake. Her eyes are open. She seems anxious and mildly confused. Const Vital Signs: 04/17/25 18:37 04/17/25 19:20 Temperature 97.3 F L Temperature Source Axillary Pulse Rate 119 H Respiratory Rate 14 Respiratory Effort Normal Non-Labored Respiratory Pattern Tachypnea Blood Pressure 129/108 H Blood Pressure Mean 115 Pulse Ox 98 Oxygen Delivery Method Room Air Positive well nourished and well developed; Negative for obese, cachectic, contractures or unkempt General Appearance ED: well developed; Negative for unkempt, cachectic, contractures, cyanotic, diaphoretic, NAD or pallor Nutritional Appearance: Negative for cachectic or obese HEENT Reports dry mucous membranes; Denies moist mucous membranes Negative for trauma or tenderness Mouth ED: Yes dry mucous membranes Mouth: dry mucous membranes Eyes PERRL and EOMs intact bilaterally Neck no lymphadenopathy, supple and no JVD General: Negative for tenderness Chest Wall inspection of chest normal and palpation of chest normal Resp normal respiratory effort and clear to auscultation bilaterally Cardio regular rhythm, S1 normal heart sound, S2 normal heart sound and no murmurs; Negative for regular rate Rate: tachycardic GI normal to inspection, nondistended, normoactive bowel sounds, non-tender, non-distended and no masses Auscultation: normoactive bowel sounds Palpation: Negative for tender, guarding or rebound tenderness present Back/Spine no CVA tenderness General Back: Negative for CVA tenderness Cervical Spine: Negative for cervical spine tenderness Thoracic Spine / Upper Back: Negative for thoracic spinal tenderness or paraspinal muscle tenderness Lumbar Spine / Lower Back: Negative for lumbar spinal tenderness Extremity normal to inspection General Extremety ED: Negative for edema or tenderness General Extremity: Negative for edema Neuro No oriented x3 and CN's II-XII intact bilaterally Neuro Narrative: Confused. Sensorium / Orientation: alert and orientation impaired Motor Exam: strength 5/5 throughout Psych Negative for mental status grossly normal Appearance: Negative for unkempt Mood & Affect: anxious Skin no rashes or lesions noted and no wounds General Skin Exam: Negative for jaundice or pallor Lesions: No lesion noted Rashes: No rashes noted Trauma: Negative for abrasion Wounds: Negative for wounds noted MDM MDM MDM Narrative Medical decision making narrative: 64-year-old female known breast cancer with brain and spine mets. Currently does not have a DNR nor CODE STATUS. She is neither on hospice or palliative care. She will be given IV morphine and Zofran for pain. Fluids for dehydration. Screening labs. And I will discuss with family if they want to make her hospice or palliative care admit her for pain management. She has had recent evaluations with labs and CAT scans. Repeat exam around 9:35 PM. Patient currently is resting comfortably. She is asleep in bed. Her vital signs are stable. Her and 2 of her 3 grown children are at bedside. We discussed CODE STATUS. They want to make her DNR Comfort Care arrest. No CPR. No intubation. No central line. They do want her treated. They would like her admitted to the hospital if at all possible tonight. Control her pain. They have the other son is coming in from [place] tomorrow. They would also like hospice consultation tomorrow. They understand the gravity of her condition. History & Record Review Discussion w/independent historian: Patient and Family Additional record(s) reviewed:: Prior inpatient record, Prior outpatient record, Prior ED visit and Prior labs Lab Data Attestation: I reviewed the patient's lab results. Lab results narrative: CBC shows a white count of 17.7. H&H is 16 and 44. Platelets 160. Chemistry shows sodium 132. Gap of 21. BUN and creatinine of 43 and 1.66 consistent with dehydration. Glucose 143. Liver enzymes show an elevated AST and ALT. Labs: Laboratory Results - last 24 hr 04/17/25 19:03 WBC 17.7 H RBC 5.26 Hgb 16.0 H Hct 44.9 MCV 85.4 MCH 30.4 MCHC 35.6 RDW Std Deviation 39.5 RDW Coeff of Dylan 12.8 Plt Count 160 MPV 10.6 Immature Gran % (Auto) 2.300 H Neut % (Auto) 87.9 H Lymph % (Auto) 2.7 L [place] % (Auto) 6.4 Eos % (Auto) 0.1 Baso % (Auto) 0.6 Absolute Neuts (auto) 15.6 H Absolute Lymphs (auto) 0.48 L Nucleated RBC % 0 Sodium 132 L Potassium 4.5 Chloride 95 L Carbon Dioxide 16.5 L Anion Gap 21 H BUN 43 H Creatinine 1.66 H Est GFR (MDRD) Non-Af 35 L BUN/Creatinine Ratio 25.8 H Glucose 143 H Calcium 9.5 Total Bilirubin 1.13 AST 59 H ALT 47 H Alkaline Phosphatase 98 Total Protein 6.7 Albumin 3.9 Globulin 2.8 Albumin/Globulin Ratio 1.4 Discharge Plan Triage Chief Complaint: Other, Pain/Inj ED Provider: Presley Dow Dx/Rx/DC Orders Clinical Impression: Breast cancer metastasized to brain, Breast cancer metastasized to bone, Acute alteration in mental status, Acute dehydration, Leukocytosis, Intractable pain Prescriptions: No Action acetaminophen 500 mg tablet 500 mg PO Q6H PRN (Reason: pain) potassium chloride 20 mEq tablet extended release 20 meq PO DAILY Qty: 14 0RF magnesium 250 mg tablet 250 mg PO QDAY ondansetron 8 mg tablet,disintegrating 8 mg PO Q8H PRN (Reason: nausea and vomiting) Qty: 30 2RF cholecalciferol (vitamin D3) 25 mcg (1,000 unit) capsule 25 mcg PO BID oxycodone-acetaminophen [Percocet] 5-325 mg tablet 1 tab PO Q4H PRN (Reason: pain) 30 Days Qty: 60 0RF triamcinolone acetonide 0.1 % cream 1 applic topical BID Qty: 454 0RF dexamethasone 4 mg tablet 4 mg PO TID Qty: 30 0RF Truqap 200 mg tablet PO ciprofloxacin HCl 500 mg tablet 500 mg PO BID Qty: 14 0RF morphine 30 mg tablet extended release 30 mg PO Q8H PRN PRN (Reason: pain ) 15 Days Qty: 30 0RF memantine 5 mg tablet 5 mg PO BID Qty: 133 0RF Rx Instructions: take two tabs PO bid x 1 month, then taper to 5 mg (one tab) bid x 1 week then 5 mg qd x 1 week then stop Primary Care Provider: Nayeli Oconnell Referrals: Nayeli Oconnell MD [Primary Care Provider] - Print Language: Slovenian Disposition Disposition: Acute Care Hospital [facility]
[2025-04-17] MEDS: Ondansetron 4 MG/2 ML Vial IV (19:09)
[2025-04-17] MEDS: 0.9% Normal Saline (1000mL) 1,000 ML 1000 ML IV (19:09)
[2025-04-17] MEDS: morphine 8 MG/ML Syringe IV (19:09)
[2025-04-17 19:11] LABS: Absolute Lymphocyte Count 0.48 X10^3/uL (0.83-4.51); Absolute Neutrophil Count 15.6 X10^3/uL (2.0-7.7); Basophil% 0.6 % (0-1); Eosinophil# 0.01 X10^3/uL; Eosinophils% 0.1 % (0-5); Hematocrit 44.9 % (37-47); Lymphocyte # 0.48 X10^3/ul (0.83-4.51); Lymphocyte % 2.7 % (19-41); Mean Corp Hgb Conc 35.6 g/dL (32-36); Mean Corpuscular Hgb 30.4 pg (27.0-32.0); Mean Corpuscular Volume 85.4 fL (81-99); Mean Platelet Vol. 10.6 fl (6.2-12.0); Monocyte# 1.13 X10^3/uL; Monocyte% 6.4 % (0-10); NRBC Flagged by Analyzer 0 % (0-5); Neutrophil # 15.56 X10^3/uL (2.7-7.7); Neutrophil % 87.9 % (47-70); POSITIVE DIFFERENTIAL YES; Platelet Count 160 K/mm3 (150-450); RBC Distribution Width CV 12.8 % (11.6-14.6); RBC Distribution Width SD 39.5 fl (35.1-43.9); Red Blood Count 5.26 M/mm3 (4.2-5.4); White Blood Count 17.7 K/mm3 (4.4-11.0)
[2025-04-17] MEDS: LORazepam 2 MG/ML Syringe 1 MG IV (19:25)
[2025-04-17 20:37] LABS: ALB/GLOB Ratio 1.4 RATIO (0.9-2.4); AST(SGOT) 59 U/L (<=31); Alanine Aminotransfer ALT/SGPT 47 U/L (<=34); Albumin, Serum 3.9 g/dL (3.4-4.8); Alkaline Phosphatase 98 U/L (35-104); Anion Gap 21 (5-15); BUN 43 mg/dL (4-19); BUN/Creat Ratio 25.8 RATIO (10-20); Calcium,Total 9.5 mg/dL (7.6-11.0); Carbon Dioxide 16.5 mmol/L (21.0-32.0); Chloride 95 mmol/L (98-108); Creatinine, Serum 1.66 mg/dL (0.70-1.20); EST Glomerular Filtration Rate 35 (>60); Globulin 2.8 g/dL (2.2-4.2); Glucose 143 mg/dL (70-99); Potassium 4.5 mmol/L (3.3-5.1); Protein, Total 6.7 g/dL (5.9-8.4); Sodium Level 132 mmol/L (133-145); Total Bilirubin 1.13 mg/dL (0.00-1.30)
--- NOTE | 2025-04-17 21:50 | RAD_ITS ---
PROCEDURE: CHEST 1 VIEW (PORTABLE) 04/17/2025 REASON FOR EXAM: LEUKOCYTOSIS TECHNIQUE: Frontal view of the chest. COMPARISON: CT chest and chest radiograph on 04/12/2025 FINDINGS: Moderate right pleural effusion, similar to 04/12/2025. There are nodular opacities throughout both lungs, [id number], also unchanged. Cardiomediastinal silhouette is unchanged. Osseous structures are unchanged, with sclerotic lesions better seen on recent CT. RAD/Chest 1 View (Portable) IMPRESSION: Stable appearance of the chest compared to exams on 04/12/2025, to include mode rate right pleural effusion and multiple pulmonary nodules concerning for metastasis. Reading Location: [facility]
[2025-04-17 21:57] LABS: Bacteria 0 SEEN /hpf (None Seen); Mucous, Urine 0 SEEN /hpf (<or=2+)
[2025-04-17 22:14] LABS: Color, Urine Yellow (Yellow); Glucose, Dipstick Normal (Normal); Ketone-Dipstick 5 mg/dl (Negative); Leukocyte Esterase-Dipstick 25 /ul (Negative); Nitrite-Dipstick Negative (Negative); Occult Blood-Urine 10 /ul (Negative); Protein-Dipstick 30 mg/dl (Negative); Urine Bilirubin Dipstick Negative (Negative); Urine Clarity Sl. Cloudy (Clear); Urine Urobilinogen Normal (Normal)
[2025-04-17 22:20] VITALS: BP 131/99; PULSE 84; RESP 14; TEMP 36.4; O2SAT 95; BMI 29.2
[2025-04-17 22:28] LABS: Red Blood Cells-Urine 0-5 SEEN /hpf (0-5); Squamous Epithelial Cells - UA 0-5 SEEN /hpf (5-10); White Blood Cells 0-5 SEEN /hpf (0-5)
--- NOTE | 2025-04-17 22:32 | PCM.HP.STD ---
HPI - General General Date of Admission: 04/17/25 HPI Narrative CHASTITY MADISON, is a 64 F who presents to the hospital with agitation and pain. She has terminal stage IV breast cancer with mets to the liver, spine, brain. She underwent whole brain radiation back in September however she still has a lesion with edema. According to the she just finished a course of steroids for this edema as well as antibiotics for a UTI. Her white count is elevated here but is likely the steroids as her urine does not look particularly dirty. She is little bit dehydrated and the states that she has not been eating or drinking anything in the last 2 weeks. Creatinine is elevated but not to a point to be able to be called CULLEN. She does not interact much with exam given the amount of medication she was given in the ER for her agitation and pain. At home she was on OxyContin 30 mg p.o. 3 times daily and Zofran. PFSH Medical History Metastases to the liver Metastasis from breast cancer Rash Low back pain Claustrophobia ER+ (estrogen receptor positive status) Anxiety due to invasive procedure Encounter for education Osteopenia Wears glasses Wears partial dentures Post-menopausal Cancer Alcohol use Psoriasis Arthritis Back pain Pneumonia Former smoker Home Medications ?Medication ?Instructions ?Recorded ?Last Taken ?Type potassium chloride 20 mEq 20 meq PO DAILY supplement #14 tabs 02/11/24 Unknown Rx tablet,extended release magnesium 250 mg tablet 250 mg PO QDAY supplement 07/28/24 Unknown History ondansetron 8 mg disintegrating 8 mg PO Q8H PRN nausea and 03/07/25 Unknown Rx tablet vomiting #30 tabs cholecalciferol (vitamin D3) 25 25 mcg PO BID supplement 03/21/25 Unknown History mcg (1,000 unit) capsule triamcinolone acetonide 0.1 % 1 applic topical BID #454 grams 03/21/25 Unknown Rx topical cream capivasertib 200 mg tablet (Truqap) 400 mg PO MOTUWETH breast cancer 04/12/25 04/14/25 History ciprofloxacin HCl 500 mg tablet 500 mg PO BID atb #14 TABLETS 04/12/25 Unknown Rx morphine 30 mg tablet,extended 30 mg PO Q8H PRN PRN pain 15 days 04/12/25 Unknown Rx release #30 tabs Allergy/AdvReac Type Severity Reaction Status Date / Time acetaminophen (From Allergy Nausea/Vom/ Verified 04/17/25 18:41 Tylenol-Codeine) Diarrhea codeine (From Allergy Nausea/Vom/ Verified 04/17/25 18:41 Tylenol-Codeine) Diarrhea Family History Mother Breast cancer Surgical History Hx of tonsillectomy History of Social History Smoking Status: Never smoker alcohol intake: never substance use type: does not use ROS Review of Systems ROS Unobtainable: due to mental status Vital Signs Vital Signs Vital Signs: 04/17/25 18:37 04/17/25 19:20 04/17/25 22:20 Temperature 97.3 F L 97.5 F L Temperature Source Axillary Pulse Rate 119 H 84 Respiratory Rate 14 14 Respiratory Effort Normal Non-Labored Respiratory Pattern Tachypnea Blood Pressure 129/108 H 131/99 H Blood Pressure Mean 115 109 Pulse Ox 98 95 Oxygen Delivery Method Room Air Weight Weight: 170 lb 9.6 oz Body Mass Index (BMI) 29.2 Physical Exam Narrative General: Alert but not communicative, eyes are open HEENT: Atraumatic, PERRLA, EOMI, Normocephalic Oral: Moist Mucosa Neck: Supple, No JVD Lungs: Diminished, Normal air movement, No rhonchi, No wheeze, No rales Cardiovascular: Regular rate, Regular Rhythm, Normal S1, Normal S2, No murmurs Abdomen: Soft, Non Tender, Non-Distended, No Hepato-splenomegaly Extremities: No edema, Capillary Refill Less than 3 Seconds Skin: No rashes, No breakdown Musculoskeletal: No Tenderness to Palpation of Joints or Extremities Neurological: Does not interact for exam Psych/Mental Status: Does not interact for exam Results Lab / Micro Data 04/17/25 19:03 04/17/25 19:03 Labs: Laboratory Results - last 24 hr 04/17/25 19:03: WBC 17.7 H, RBC 5.26, Hgb 16.0 H, Hct 44.9, MCV 85.4, MCH 30.4, MCHC 35.6, RDW Std Deviation 39.5, RDW Coeff of Dylan 12.8, Plt Count 160, MPV 10.6, Immature Gran % (Auto) 2.300 H, Neut % (Auto) 87.9 H, Lymph % (Auto) 2.7 L, [place] % (Auto) 6.4, Eos % (Auto) 0.1, Baso % (Auto) 0.6, Absolute Neuts (auto) 15.6 H, Absolute Lymphs (auto) 0.48 L, Nucleated RBC % 0, Sodium 132 L, Potassium 4.5, Chloride 95 L, Carbon Dioxide 16.5 L, Anion Gap 21 H, BUN 43 H, Creatinine 1.66 H, Est GFR (MDRD) Non-Af 35 L, BUN/Creatinine Ratio 25.8 H, Glucose 143 H, Calcium 9.5, Total Bilirubin 1.13, AST 59 H, ALT 47 H, Alkaline Phosphatase 98, Total Protein 6.7, Albumin 3.9, Globulin 2.8, Albumin/Globulin Ratio 1.4 04/17/25 21:45: Urine Color Yellow, Urine Clarity Sl. Cloudy, Urine pH 5.0, Ur Specific [place] 1.020, Urine Protein 30 H, Urine Glucose (UA) Normal, Urine Ketones 5 H, Urine Occult Blood 10 H, Urine Nitrite Negative, Urine Bilirubin Negative, Urine Urobilinogen Normal, Ur Leukocyte Esterase 25 H, Urine RBC 0-5 SEEN, Urine WBC 0-5 SEEN, Ur Squamous Epith Cells 0-5 SEEN, Urine Bacteria 0 SEEN, Urine Mucus 0 SEEN Imaging Radiology Impression Chest X-Ray 04/17/25 21:50 IMPRESSION: Stable appearance of the chest compared to exams on 04/12/2025, to include moderate right pleural effusion and multiple pulmonary nodules concerning for metastasis. Reading Location: [id number] Assessment & Plan Assessment/Plan (1) Intractable pain: (2) Acute dehydration: PLAN: Plan 1. Intractable pain due to stage IV breast cancer with mets to the liver, spine, brain/dehydration due to poor p.o. intake ? Will continue with D5 normal saline at 100 ? Will check magnesium and phosphorus levels ? Had a 25-minute discussion on advance care planning with family on the role of hospice care in the setting of her stage IV breast cancer. Will make her a DNR CC and consult hospice ? In the meantime we will provide aggressive pain management with OxyContin 30 mg p.o. twice daily as well as sublingual oxycodone 5 mg every 4 as needed and morphine 4 mg IV Q3 as needed ? Will provide both Zofran and Compazine ? Will provide Ativan for agitation and confusion DVT: Lovenox 60 minutes was spent on direct patient care, including documentation as well as chart review and collaboration with colleagues Charges/Coding Multi Select Codes Visit Charges Visit Charges: 06870 Init Hosp L2 Hospitalists' Procedures Procedures: 85874 Advncd Care Plan 30 Min
[2025-04-17 23:07] VITALS: BMI 27.3
[2025-04-17 23:22] VITALS: BP 127/81; PULSE 87; RESP 16; TEMP 36.6; O2SAT 95
[2025-04-17 23:23] VITALS: O2SAT 84
[2025-04-17] MEDS: Dextrose 5%/0.9% NaCl 1,000 ML 100 ML IV (23:35)
[2025-04-17] MEDS: 0.9% Saline Lock 10 ML Syringe IV (23:36)
[2025-04-18 02:36] LABS: Magnesium 2.4 mg/dL (1.5-2.2); Phosphorus 3.7 mg/dL (2.7-4.5)
--- NOTE | 2025-04-18 02:38 | NURSING ---
This nurse taking over patients care at this time.
[2025-04-18 05:30] VITALS: BP 145/97; PULSE 100; RESP 16; TEMP 36.7; O2SAT 94
[2025-04-18] MEDS: Lorazepam 2 MG/ML WCH Syringe 1 MG IV (06:02)
[2025-04-18] MEDS: Morphine 4 MG/ML Syringe IV (06:02)
[2025-04-18 06:15] LABS: Absolute Lymphocyte Count 0.26 X10^3/uL (0.83-4.51); Absolute Neutrophil Count 16.6 X10^3/uL (2.0-7.7); Basophil# 0.03 X10^3/uL; Basophil% 0.2 % (0-1); Eosinophil# 0.02 X10^3/uL; Eosinophils% 0.1 % (0-5); Hematocrit 40.6 % (37-47); Lymphocyte # 0.26 X10^3/ul (0.83-4.51); Lymphocyte % 1.4 % (19-41); Mean Corp Hgb Conc 34.5 g/dL (32-36); Mean Corpuscular Hgb 30.4 pg (27.0-32.0); Mean Corpuscular Volume 88.1 fL (81-99); Mean Platelet Vol. 10.1 fl (6.2-12.0); Monocyte% 4.4 % (0-10); NRBC Flagged by Analyzer 0 % (0-5); Neutrophil # 16.64 X10^3/uL (2.7-7.7); Neutrophil % 92.6 % (47-70); POSITIVE DIFFERENTIAL YES; Platelet Count 117 K/mm3 (150-450); RBC Distribution Width CV 13.2 % (11.6-14.6); Red Blood Count 4.61 M/mm3 (4.2-5.4)
[2025-04-18 06:48] LABS: Anion Gap 13 (5-15); BUN 33 mg/dL (4-19); BUN/Creat Ratio 27.9 RATIO (10-20); Calcium,Total 8.2 mg/dL (7.6-11.0); Carbon Dioxide 20.1 mmol/L (21.0-32.0); Chloride 103 mmol/L (98-108); Creatinine, Serum 1.18 mg/dL (0.70-1.20); EST Glomerular Filtration Rate 52 (>60); Estimated Creatinine Clearance 50.01 ml/min (50-250); Glucose 158 mg/dL (70-99); Potassium 3.5 mmol/L (3.3-5.1); Sodium Level 136 mmol/L (133-145)
--- NOTE | 2025-04-18 08:05 | PN.HOSP_ITS ---
Reason for Visit Reason for Visit: Diagnoses Dehydration (04/17/25) Pain, unspecified (04/17/25) Subjective Subjective Agitated. Still confused. Objective Data Objective Data Vital Signs: Vital Signs Temp Pulse Resp BP Pulse Ox O2 Del Method O2 Flow Rate 36.7 C 100 16 145/97 H 94 Nasal Cannula 2 04/18/25 05:30 04/18/25 05:30 04/18/25 05:30 04/18/25 05:30 04/18/25 05:30 04/18/25 05:30 04/18/25 05:30 Oxygen Flow Rate (L/min) 2 Oxygen Delivery Method Nasal Cannula Weight: 74.7 kg Body Mass Index (BMI) 27.3 Intake & Output: Intake and Output for Last 24 Hours 04/16/25 04/17/25 04/18/25 23:59 23:59 23:59 Intake Total 1000 / 1000 0 / 0 Balance 1000 / 1000 0 / 0 Lab / Micro Data 04/18/25 05:55 04/18/25 05:55 Labs: Laboratory Results - last 24 hr 04/17/25 19:03: WBC 17.7 H, RBC 5.26, Hgb 16.0 H, Hct 44.9, MCV 85.4, MCH 30.4, MCHC 35.6, RDW Std Deviation 39.5, RDW Coeff of Dylan 12.8, Plt Count 160, MPV 10.6, Immature Gran % (Auto) 2.300 H, Neut % (Auto) 87.9 H, Lymph % (Auto) 2.7 L , [place] % (Auto) 6.4, Eos % (Auto) 0.1, Baso % (Auto) 0.6, Absolute Neuts (auto) 15.6 H, Absolute Lymphs (auto) 0.48 L, Nucleated RBC % 0, Sodium 132 L, Potassium 4.5, Chloride 95 L, Carbon Dioxide 16.5 L, Anion Gap 21 H, BUN 43 H, C reatinine 1.66 H, Est GFR (MDRD) Non-Af 35 L, BUN/Creatinine Ratio 25.8 H, G lucose 143 H, Calcium 9.5, Phosphorus 3.7, Magnesium 2.4 H, Total Bilirubin 1.13, AST 59 H, ALT 47 H, Alkaline Phosphatase 98, Total Protein 6.7, Albumin 3.9, Globulin 2.8, Albumin/Globulin Ratio 1.4 04/17/25 21:45: Urine Color Yellow, Urine Clarity Sl. Cloudy, Urine pH 5.0, Ur Specific [place] 1.020, Urine Protein 30 H, Urine Glucose (UA) Normal, Urine Ketones 5 H, Urine Occult Blood 10 H, Urine Nitrite Negative, Urine Bilirubin Negative, Urine Urobilinogen Normal, Ur Leukocyte Esterase 25 H, Urine RBC 0-5 SEEN, Urine WBC 0-5 SEEN, Ur Squamous Epith Cells 0-5 SEEN, Urine Bacteria 0 SEEN, Urine Mucus 0 SEEN 04/18/25 05:55: WBC 18.0 H, RBC 4.61, Hgb 14.0, Hct 40.6, MCV 88.1, MCH 30.4, MCHC 34.5, RDW Std Deviation 43.0, RDW Coeff of Dylan 13.2, Plt Count 117 L, MPV 10.1, Immature Gran % (Auto) 1.300 H, Neut % (Auto) 92.6 H, Lymph % (Auto) 1.4 L , [place] % (Auto) 4.4, Eos % (Auto) 0.1, Baso % (Auto) 0.2, Absolute Neuts (auto) 16.6 H, Absolute Lymphs (auto) 0.26 L, Nucleated RBC % 0, Sodium 136, Potassium 3.5, Chloride 103, Carbon Dioxide 20.1 L, Anion Gap 13, BUN 33 H, Creatinine 1.18, Estim Creat Clear Calc 50.01, Est GFR (MDRD) Non-Af 52 L, BUN/Creatinine Ratio 27.9 H, Glucose 158 H, Calcium 8.2 Radiography Diagnostic Testing: Radiology Impression Chest X-Ray 04/17/25 21:50 IMPRESSION: Stable appearance of the chest compared to exams on 04/12/2025, to include moderate right pleural effusion and multiple pulmonary nodules concerning for metastasis. Reading Location: [id number] Physical Exam Const alert Constitutional Narrative: oriented x 0. nontoxic. afebrile. HEENT head/scalp atraumatic and moist oral mucous membranes Resp normal respiratory effort, no retractions, no use of accessory muscles and clear to auscultation bilaterally Cardio regular rate, regular rhythm, S1 normal heart sound and S2 normal heart sound GI normal to inspection, nondistended, normoactive bowel sounds, soft to palpation, non-tender and non-distended Assessment & Plan Assessment/Plan (1) Intractable pain: PLAN: 2/2 stage IV breast CA with tanner to liver, spince, brain PO oxy, SL Oxy and IV morphine supportive mgmt Hospice consult (2) Encephalopathy: PLAN: add PRN SL lorazepam likely due to known brain metastasis. PLAN: Plan VTE prophylaxis: LMWH. Hospice notified and will see patient on 04/19 patient's at bedside. Charges/Coding Visit Charges Inpatient E&M: 88856 Subs Hosp L2
--- NOTE | 2025-04-18 09:27 | CASEMGMT ---
Addendum entered by Smiley Cox 04/18/25 12:00: SW received notice that [facility] will come today at 5:30 for consult. Bedside nurse and pt family aware. MARCO Rudd Addendum entered by Smiley Cox 04/18/25 10:58: DARRYL received notice that consult is tomorrow 04/19 at 9:30 due to hospice schedule. Family would like a sooner appointment if able, but reports understanding. SW called [facility] and advocated for family request. Hospice will put family on a call list for today in the event that any openings come up. MARCO Rudd Original Note: Social Work- SW called [facility] to follow up on hospice consult time. [facility] did not have patient in their system or show a referral. DARRYL completed and faxed referral. Bedside nurse notified; pt notified. SW remain available to follow. MARCO Rudd
[2025-04-18] MEDS: Dextrose 5%/0.9% NaCl 1,000 ML 100 ML IV (10:23)
[2025-04-18 10:59] VITALS: BP 141/93; PULSE 93; RESP 18; TEMP 36.5; O2SAT 96
[2025-04-18] MEDS: LORazepam 2 MG/ML Bottle 1 MG SL ×3 (12:19→20:33)
--- NOTE | 2025-04-18 16:00 | DCINST_ITS ---
Discharge Instructions Diet Discharge Diet: No restrictions DC O2, CPAP, BIPAP needs Home O2 Discharge instructions: No Follow Up Care Test Results: Test results from this visit will be discussed in further detail at your follow- up appointment, if applicable. Discharge Plan Admission Admit Date/Time: 04/17/25 22:27 Primary Reason for Your Visit: cancer pain. Attending Provider: Freddy Davis Primary Care Provider: Nayeli Oconnell Consulting Providers: Fidencio Mena; Denice Epstein; Catina Hurst; Tayler Marlow; Barbara Chambers VISUAL EDUCATION TEACHER; Ava Ernandez; Alex Sol Discharge Orders/Prescriptions Prescriptions: Continued ondansetron 8 mg tablet,disintegrating 8 mg PO Q8H PRN (Reason: nausea and vomiting) Qty: 30 2RF triamcinolone acetonide 0.1 % cream 1 applic topical BID Qty: 454 0RF morphine 30 mg tablet extended release 30 mg PO Q8H PRN PRN (Reason: pain ) 15 Days Qty: 30 0RF Discontinued potassium chloride 20 mEq tablet extended release 20 meq PO DAILY Qty: 14 0RF magnesium 250 mg tablet 250 mg PO QDAY cholecalciferol (vitamin D3) 25 mcg (1,000 unit) capsule 25 mcg PO BID Truqap 200 mg tablet 400 mg PO MOTUWETH ciprofloxacin HCl 500 mg tablet 500 mg PO BID Qty: 14 0RF Referrals / Follow Up: Nayeli Oconnell MD [Primary Care Provider] - Disposition Disposition (needs filled in before D/C Order can be placed): Hospice in Medical Facility
[2025-04-18] MEDS: oxyCODONE Soln 5 MG/0.25 ML PO.SYRINGE SL ×2 (19:42→23:28)
[2025-04-18 23:52] VITALS: PULSE 96; RESP 18; TEMP 36.2; O2SAT 99
[2025-04-19] MEDS: LORazepam 2 MG/ML Bottle 1 MG SL ×3 (01:16→11:25)
[2025-04-19] MEDS: oxyCODONE Soln 5 MG/0.25 ML PO.SYRINGE SL ×2 (06:19→11:24)
[2025-04-19 06:50] VITALS: BP 135/103; PULSE 101; RESP 16; TEMP 36.6; O2SAT 96
--- NOTE | 2025-04-19 09:33 | PCM.DC.SUM ---
Providers Date of Admission: 04/17/25 Primary Care Physician: Dr. Nayeli Oconnell MD Consultations 04/17/25 23:03 Consult: Hospice / Palliative Care Routine Consulting Provider: [facility] Reason for Consult: Stage 4 breast cancer need pain control EMERGENT Consult: No MD Notified: Yes Date Notified: 04/17/25 Time Notified: 23:24 Method of Notification: Answering Service Reason For Visit: CANCER PAIN Diagnosis Discharge Diagnosis (1) Intractable pain: Status: Acute Code(s): R52 - Pain, unspecified Plan: 2/2 stage IV breast CA with tanner to liver, spince, brain PO oxy, SL Oxy and IV morphine supportive mgmt Plan for hospice at home. Will discharge with PRN SL lorazepam and morphine Yang place last night for urinary retention. (2) Encephalopathy: Status: Acute Code(s): G93.40 - Encephalopathy, unspecified Plan: add PRN SL lorazepam likely due to known brain metastasis. Plan DW patient's at bedside. Medications at Discharge Home Medications ondansetron 8 mg disintegrating tablet 8 mg PO Q8H PRN nausea and vomiting #30 tabs 03/07/25 triamcinolone acetonide 0.1 % topical cream 1 applic topical BID #454 grams 03/21/25 morphine 30 mg tablet,extended release 30 mg PO Q8H PRN PRN pain 15 days #30 tabs 04/12/25 lorazepam 2 mg/mL oral concentrate 1 mg (0.5 mL) sublingual Q4H PRN PRN Anxiety/Restlessness/Sleep 5 days #30 mL 04/19/25 morphine 20 mg/5 mL (4 mg/mL) oral solution 10 mg (2.5 mL) PO Q4H PRN pain 5 days #100 mL 04/19/25 Hospital Course Operations None Procedures None Summary of Care Provided Hospital Course: Patient presents with confusion and intractable pain. Patient has stage IV breast cancer with brain, lung and spinal mets. Patient was admitted made DNR comfort care. Patient was seen by hospice and family agreed to hospice services but at home. They requested discharge be delayed until the third. Discussed with the patient's today and that is still the plan but waiting on equipment which will be delivered around 1300 today. Yang catheter was placed due to urinary retention. Given comfort measures, would continue with the Yang catheter moving forward. Medical Records Data Medical Nutrition Assessment Dietitian: Malnutrition Criteria Met Start: 04/18/25 12:01 Freq: Status: Active Protocol: Document 04/18/25 12:01 SLA (Rec: 04/18/25 12:01 SLA [id number]) Nutrition Malnutrition Evidence of Yes Malnutrition Exists Malnutrition (severe Chronic ): Evidenced By Suboptimal Energy Intake (Severe),Weight Loss (Severe) Clinical Problem Chronic Disease or Condition Related Malnutrition Etiology related terminal breast cancer w/ mets to liver, spine, brain and taste being off since radiation tx in Nov causing inadequate energy intake Signs/Symptoms as evidenced by po intake meeting <75% of est nutritional needs x ~ 1 mo and 18.5% unintended wt loss x ~ 2 mo captain assistant Status Active Problem Recommendation Dietitian Rec continue liberal regular diet w/ O[facility] at [facility] Recommendations/ Consider supplemental nutrition support if in Changes accordance w/ pt/family wished to help prevent further decline in pt nutritional status Continue to monitor for changes in pt nutritional status and make additional rec as indicated Weight / BMI Weight Weight: 74.7 kg Body Mass Index (BMI) 27.3 ABG / Lab / Microbiology Data 04/18/25 05:55 04/18/25 05:55 D/C Instructions Discharge Diet: No restrictions DC O2, CPAP, BIPAP Needs Home O2 Discharge instructions: No Meaningful Use Info Meaningful Use Meaningful Use Diagnoses (Choose all that apply): None applicable Ischemic Stroke Statin Dosing Therapy Reference: STATIN DOSE THERAPY REFERENCE: * Patients > 75 years receive moderate or high dose statin therapy. * Patients 75 years or YOUNGER should receive HIGH intensity statin dose unless contraindicated. You will be required to document reason for non-treatment if statin daily dose does not meet guidelines. HIGH DOSE STATIN THERAPY DAILY Atorvastatin > than or = to 40 mg Rosuvastatin > than or = to 20 mg Amlodipine + Atorvastatin > than or = to 2.5/40 mg Ezetimibe + Simvastatin 10/80 mg Simvastatin 80mg Discharge Plan Admission Admit Date/Time: 04/17/25 22:27 Primary Reason for Your Visit: cancer pain. Attending Provider: Freddy Davis Primary Care Provider: Nayeli Oconnell Consulting Providers: Fidencio Mena; Denice Epstein; Catina Hurst; Tayler Marlow; Barbara Chambers STAFF COMBAT INFORMATION CENTER OFFICER; Ava Ernandez; Alex Sol Discharge Orders/Prescriptions Prescriptions: New lorazepam 2 mg/mL Concentrate 1 mg sublingual Q4H PRN PRN (Reason: Anxiety/Restlessness/Sleep) 5 Days Qty: 30 0RF morphine 20 mg/5 mL (4 mg/mL) solution 10 mg PO Q4H PRN (Reason: pain) 5 Days Qty: 100 0RF Continued ondansetron 8 mg tablet,disintegrating 8 mg PO Q8H PRN (Reason: nausea and vomiting) Qty: 30 2RF triamcinolone acetonide 0.1 % cream 1 applic topical BID Qty: 454 0RF morphine 30 mg tablet extended release 30 mg PO Q8H PRN PRN (Reason: pain ) 15 Days Qty: 30 0RF Discontinued potassium chloride 20 mEq tablet extended release 20 meq PO DAILY Qty: 14 0RF magnesium 250 mg tablet 250 mg PO QDAY cholecalciferol (vitamin D3) 25 mcg (1,000 unit) capsule 25 mcg PO BID Truqap 200 mg tablet 400 mg PO MOTUWETH ciprofloxacin HCl 500 mg tablet 500 mg PO BID Qty: 14 0RF Referrals / Follow Up: Nayeli Oconnell MD [Primary Care Provider] - Disposition Disposition (needs filled in before D/C Order can be placed): Hospice in Home Charges/Coding Visit Charges Inpatient E&M: 25669 Disch Hosp
--- NOTE | 2025-04-19 09:48 | CASEMGMT ---
Social Work[phone]. Hospice will have equipment delivered around noon to residence and transport will pick pt up at 2pm. Hospitalist and bedside nurse updated. DARRYL spoke with pt spouse and provided timelines provided by hospice. Pt spouse states no other needs at this time. DARRYL faxed discharge to [facility] ([phone]). DARRYL remains available to follow. MARCO Rudd
--- NOTE | 2025-04-19 10:00 | PHA.DC.MR.R ---
Pharmacy [facility] Med Reconciliation Pharmacy Service has performed discharge medication reconciliation for this patient. The patient's discharge medication list was reviewed for discrepancies and discrepancies were resolved. Medications at Discharge Home Medications ondansetron 8 mg disintegrating tablet 8 mg PO Q8H PRN nausea and vomiting #30 tabs 03/07/25 triamcinolone acetonide 0.1 % topical cream 1 applic topical BID #454 grams 03/21/25 morphine 30 mg tablet,extended release 30 mg PO Q8H PRN PRN pain 15 days #30 tabs 04/12/25 lorazepam 2 mg/mL oral concentrate 1 mg (0.5 mL) sublingual Q4H PRN PRN Anxiety/Restlessness/Sleep 5 days #30 mL 04/19/25 morphine 20 mg/5 mL (4 mg/mL) oral solution 10 mg (2.5 mL) PO Q4H PRN pain 5 days #100 mL 04/19/25
[2025-04-19] MEDS: Morphine 4 MG/ML Syringe IV (14:16)
[2025-04-19 14:23] VITALS: BP 139/89; PULSE 89; RESP 18; TEMP 37.1; O2SAT 98
--- NOTE | 2025-04-19 15:36 | CHAPLAIN ---
Type of Pastoral Visit _x__ Initial Visit ___ Follow-up Visit ___ On-call Visit ___ General Patient Visit ___ Spiritual Assessment ___ Family Conference ___ Bereavement ___ Rapid Response ___ Code Blue ___ Other (describe below) Pastoral Care Referral From ___ Patient _x__ Family _x__ Nurse ___ Physician ___ Android Ui Developer ___ Gravity Prospecting Observer Helper ___ Other (describe below) Sacrament/Intervention ___ Active listening ___ Anointing ___ Confucianism ___ Bereavement ___ Communion ___ Divya exploration ___ _x__ Life review _x__ Prayer ___ Reconciliation ___ Sacrament of Sick _x__ Supportive presence ___ Wedding ___ Other (describe below) Pastoral Comments RN notified this health benefits specialist of recommendation to see this patient and family members; pt is to be moved home today and has been enrolled in hospice; pt is sleeping/unresponsive at this time but spouse and adult children are in the room and at bedside; this health benefits specialist discovers that pt and her family have been met before by this health benefits specialist in regular life settings and this creates an open invitation to be present and offer care; the patient's radioactivity technician has been notified and has been present as well; pt is supported by family members, friends, and [employer] community; spouse asks for prayer to be spoken; some life review given; comforting and consoling words along with presence given to family members
== END 2025-04-19 14:20 | disposition hospice, home (50) ==
LOC: ED 21:44 → MS3 22:43
PROVIDERS: Admitting Provider Family Medicine; Emergency Provider Emergency Medicine; PCP Family Medicine
DX: G89.3 Neoplasm related pain (acute) (chronic) (principal); C78.7 Secondary malignant neoplasm of liver and intrahepatic bile duct; C79.31 Secondary malignant neoplasm of brain; C79.51 Secondary malignant neoplasm of bone; C50.919 Malignant neoplasm of unspecified site of unspecified female breast; D72.829 Elevated white blood cell count, unspecified; Z51.5 Encounter for palliative care; E86.0 Dehydration; Z92.3 Personal history of irradiation; Z80.3 Family history of malignant neoplasm of breast; R91.8 Other nonspecific abnormal finding of lung field; Z17.0 Estrogen receptor positive status [ER+]; J90 Pleural effusion, not elsewhere classified; Z66 Do not resuscitate; Z79.899 Other long term (current) drug therapy; G93.40 Encephalopathy, unspecified
CPT/HCPCS: 36415; 51702; 71045; 80048; 80053; 81001; 83735; 84100; 85025; 96361; 96374; 96375; 96376; 97802; 99221; 99285; P9612; A4216; G0378; J2405